=== PATIENT | male | born 1975 | race Hispanic/Latino ===

== ENCOUNTER 2017-02-23 09:51 | Observation (INO) | payer MEDICAID ==
--- NOTE | 2017-02-23 10:04 | ED PDOC ---
Arrival/HPI - General Historian: Patient, Spouse - Critical Care Critical Care Minutes: 30 minutes - History of Present Illness Time/Duration: Prior to Arrival Symptom Onset: Sudden Symptom Course: Unchanged - General Chief Complaint: Shortness Of Breath Time Seen by Provider: 02/23/17 09:52 - History of Present Illness Narrative History of Present Illness (Text): 02/23/17 10:00 41 yo M w h/o asthma and active tobacco abuse presents to ER with acute SOB onset upon waking up this morning, states he woke up to his laughing. States he feels as if he is having an asthma exacerbation, which he has had in the past, but this is more severe. Admits to chest tightness with breathing. Denies abd pain, n/v/d/c, fevers, chills, recent illness or travel, recent antibiotic use. (Renee Bishop) Past Medical History - Provider Review Nursing Documentation Reviewed: Yes - Travel History Have you recently traveled outside [place] w/in the past 3 mons?: No - Infectious Disease Hx of Infectious Diseases: None - Pulmonary Hx Asthma: Yes - Renal Other/Comment: One kidney - Psychiatric Hx Substance Use: No Family/Social History - Physician Review Nursing Documentation Reviewed: Yes Family/Social History: Hypertension Smoking Status: Heavy Smoker > 10 Cigarettes Daily Hx Alcohol Use: Yes Frequency of alcohol use: Socially Hx Substance Use: No Allergies/Home Meds Allergies/Adverse Reactions: Allergies No Known Allergies Allergy (Verified 02/23/17 09:53) Home Medications: Home Meds Medication Instructions Recorded Confirmed No Known Home Med 02/23/17 02/23/17 Review of Systems - Physician Review All systems were reviewed & negative as marked: Yes - Review of Systems Constitutional: Normal. absent: Fatigue, Fevers Eyes: absent: Vision Changes ENT: Normal Respiratory: SOB. absent: Cough, Sputum, Wheezing Cardiovascular: Chest Pain (tightness when breathing). absent: Palpitations, Edema, Calf Pain, Orthopnea, Syncope Gastrointestinal: Normal. absent: Abdominal Pain, Constipation, Diarrhea, Nausea, Vomiting Genitourinary Male: Normal. absent: Dysuria, Frequency Musculoskeletal: Normal. absent: Neck Pain Skin: Normal. absent: Rash, Skin Lesions Neurological: Normal. absent: Headache, Dizziness, Focal Weakness Endocrine: Normal. absent: Diaphoresis Hemo/Lymphatic: Normal. absent: Easy Bleeding, Easy Bruising Psychiatric: Anxiety Physical Exam Vital Signs Reviewed: Yes Temperature: Afebrile Blood Pressure: Normal Pulse: Tachycardic Respiratory Rate: Tachypneic Appearance: Positive for: Non-Toxic, Uncomfortable Pain Distress: None Mental Status: Positive for: Alert and Oriented X 3 - Systems Exam Head: Present: Atraumatic, Normocephalic Pupils: Present: PERRL Extroacular Muscles: Present: EOMI Conjunctiva: Present: Normal. No: Icteric Mouth: Present: Moist Mucous Membranes Neck: Present: Normal Range of Motion. No: Meningeal Signs, JVD Respiratory/Chest: Present: Clear to Auscultation, Good Air Exchange, Decreased Breath Sounds (mildly diffuse). No: Wheezes Cardiovascular: Present: Normal S1, S2, Tachycardic Abdomen: Present: Normal Bowel Sounds. No: Tenderness, Distention, Peritoneal Signs, Rebound, Guarding Upper Extremity: Present: Normal Inspection, Normal ROM, NORMAL PULSES, Capillary Refill < 2s. No: Cyanosis, Edema Lower Extremity: Present: Normal Inspection, NORMAL PULSES, Capillary Refill < 2 s. No: Edema, CALF TENDERNESS Neurological: Present: GCS=15, CN II-XII Intact, Speech Normal Skin: Present: Warm, Dry, Normal Color. No: Rashes Psychiatric: Present: Alert, Oriented x 3, Anxious, Agitated Medical Decision Making - Lab Interpretations I have reviewed the lab results: Yes ED Course and Treatment: 02/23/17 10:10 41 yo M w h/o asthma and active tobacco abuse presents with acute shortness of breath and tachypnea. PERC score =1 Plan: labs CXR Duonebs [id number] x 3 Solumedrol 125mg IV x1 Ativan 1mg IV Reassess, dispo 02/23/17 10:48 Patient and significantly anxious, patient requests Ativan. Will give another 0.5mg IV ativan. 02/23/17 10:[address] Conde, case discussed at length. Dr. Conde accepts admission to telemetry for acute dyspnea. Labs and CXR results discussed with patient and . In agreement with plan for admission and further workup given patient's persistent dyspnea. Vital signs currently stable, spo2 100%, currently receiving Xopenex. 02/23/17 11:01 Dr. Estevez at bedside to evaluate patient, per Dr Conde request. Requests UDS and states will f/u CTA chest ordered by hospitalist. 02/23/17 11:25 Dr. Conde and resident at bedside in ER to evaluate patient. (Renee Bishop) 02/23/17 12:42 Patient seen and examined with resident Came up with treatment and disposition plan with resident 41-year-old male with sudden onset of shortness of breath. Patient tachypnea, examination, protecting his airway, good oxygen saturation, felt better with nebulizer treatments. Patient has been admitted for further workup by the hospital service. (Lorenzo Roman) - Lab Interpretations Lab Results: 02/23/17 10:15 02/23/17 10:15 Lab Results 02/23/17 10:15: PT 11.5, INR 1.06, APTT 27.8, D-Dimer, Quantitative 0.19 02/23/17 10:15: Sodium 138, Chloride 99, Potassium 3.5 L, Carbon Dioxide 22, Anion Gap 21 H, BUN 16, Creatinine 1.0, Est GFR ( Amer) > 60, Est GFR ( Non-Af Amer) > 60, Random Glucose 116 H, Calcium 9.6, Magnesium 1.9, Total Bilirubin 1.1, AST 41, ALT 44, Alkaline Phosphatase 119, Troponin I < 0.01, Total Protein 8.8 H, Albumin 5.0 H, Globulin 3.8, Albumin/Globulin Ratio 1.3 02/23/17 10:15: WBC 13.1 H, RBC 4.94, Hgb 15.4, Hct 42.9, MCV 86.8, MCH 31.2, MCHC 35.9, RDW 12.5, Plt Count 317, MPV 9.3, Gran % 74.5 H, Lymph % (Auto) 19.2 L, Brantley % (Auto) 5.3, Eos % (Auto) 0.8 L, Baso % (Auto) 0.2, Gran # 9.76 H, Lymph # 2.5, Brantley # 0.7 H, Eos # 0.1, Baso # 0.03 02/23/17 10:06: pO2 74 H, VBG pH 7.45 H, VBG pCO2 34.0 L, VBG HCO3 23.6, VBG Total CO2 24.6, VBG O2 Sat (Calc) 97.9 H, VBG Base Excess 0.1, VBG Potassium 3.8 , Sodium 138.0, Chloride 106.0, Glucose 127 H, Lactate 3.2 H, FiO2 21.0, Venous Blood Potassium 3.8 - RAD Interpretation Radiology Orders: 02/23/17 09:54 CXR [CHEST PORTABLE] [RAD] Stat 02/23/17 10:35 CHEST PORTABLE [RAD] Stat - Medication Orders Current Medication Orders: Aspirin (Ecotrin) 81 mg PO DAILY [facility] Last Admin: 02/23/17 12:37 Dose: 81 mg Atorvastatin Calcium (Lipitor) 10 mg PO DIN [facility] Levofloxacin/Dextrose (Levaquin 500mg) 500 mg in 100 mls @ 100 mls/hr IVPB DAILY [facility] Last Admin: 02/23/17 12:36 Dose: 100 mls/hr Ipratropium [place] (Atrovent) 0.5 mg IH [id number] [facility] Last Admin: 02/23/17 12:37 Dose: 0.5 mg Levalbuterol HCl (Xopenex) 1.25 mg IH [id number] [facility] Montelukast Sodium (Singulair) 10 mg PO DAILY [facility] Pantoprazole Sodium (Protonix Ec Tab) 40 mg PO 0630 [facility] Discontinued Medications Albuterol/Ipratropium (Duoneb 3 Mg/0.5 Mg (3 Ml) Ud) 3 ml IH Q15M [facility] Stop: 02/23/17 10:31 Last Admin: 02/23/17 10:36 Dose: 3 ml Sodium Chloride (Sodium Chloride 0.9%) 1,000 mls @ 999 mls/hr IV .Q1H1M STA Stop: 02/23/17 12:33 Last Admin: 02/23/17 12:36 Dose: 999 mls/hr Iodixanol (Visipaque 320 Mg/Ml 100 Ml) Confirm Administered Dose 100 ml IV .STK- MED ONE Stop: 02/23/17 11:47 Levalbuterol HCl (Xopenex) 0.63 mg IH ONCE STA Stop: 02/23/17 10:33 Last Admin: 02/23/17 10:35 Dose: 0.63 mg Levalbuterol HCl (Xopenex) Confirm Administered Dose 0.63 mg .ROUTE .STK-MED ONE Stop: 02/23/17 10:34 Last Admin: 02/23/17 10:42 Dose: Lorazepam (Ativan) 1 mg IVP ONCE ONE PRN Reason: Protocol Stop: 02/23/17 10:16 Last Admin: 02/23/17 10:22 Dose: 1 mg Lorazepam (Ativan) 0.5 mg IVP ONCE ONE PRN Reason: Protocol Stop: 02/23/17 10:42 Last Admin: 02/23/17 10:59 Dose: 0.5 mg Methylprednisolone (Solu-Medrol) 125 mg IVP STAT STA Stop: 02/23/17 09:54 Last Admin: 02/23/17 10:16 Dose: 125 mg Methylprednisolone (Solu-Medrol) 40 mg IVP BID STA Stop: 02/23/17 11:38 Last Admin: 02/23/17 11:43 Dose: Potassium Chloride (K-Dur 20 Meq Er Tab) 20 meq PO STAT STA Stop: 02/23/17 10:48 Last Admin: 02/23/17 11:10 Dose: 20 meq Disposition/Present on Arrival - Present on Arrival Any Indicators Present on Arrival: No History of DVT/PE: No History of Uncontrolled Diabetes: No Urinary Catheter: No History of Decub. Ulcer: No History Surgical Site Infection Following: None - Disposition Have Diagnosis and Disposition been Completed?: Yes Disposition Time: 10:50 Patient Plan: Admission - Disposition Diagnosis: Acute dyspnea Disposition: HOSPITALIZED Patient Problems: Current Active Problems Problem Status Onset Acute dyspnea Acute Condition: FAIR
[2017-02-23 10:16] LABS: ADD MANUAL DIFF? NO
[2017-02-23 10:20] LABS: BASO # 0.03 K/mm3 (0.0-2.0); BASO % 0.2 % (0.0-3.0); EOS # 0.1 (0.0-0.7); EOS % 0.8 % (1.5-5.0); GRAN # 9.76 (1.4-6.5); GRAN % 74.5 % (50.0-68.0); HEMATOCRIT 42.9 % (42.0-52.0); LYMPH # 2.5 (1.2-3.4); LYMPH % 19.2 % (22.0-35.0); MEAN CELL VOLUME 86.8 fL (80.0-105.0); MEAN CORPUSCULAR HEMOGLOBIN 31.2 pg (25.0-35.0); MEAN CORPUSCULAR HGB CONC 35.9 g/dl (31.0-37.0); MEAN PLATELET VOLUME 9.3 fl (7.0-11.0); MONO # 0.7 (0.1-0.6); MONO % 5.3 % (1.0-6.0); PLATELET COUNT 317 10^3/uL (120.0-450.0); RED CELL DISTRIBUTION WIDTH 12.5 % (11.5-14.5); WHITE BLOOD COUNT 13.1 10^3/ul (4.5-11.0)
[2017-02-23] MEDS: Albuterol-Ipratrop 3 mg / 0.5 (3 ml) UD IH SCH ×2 (10:21→10:36)
[2017-02-23 10:25] LABS: VENOUS BLOOD GAS BASE EXCESS 0.1 mmol/L (0.0-2.0); VENOUS BLOOD PH 7.45 (7.32-7.43)
[2017-02-23 10:29] LABS: ALB/GLOB RATIO 1.3 (1.1-1.8); ALKALINE PHOSPHATASE 119 U/L (38-133); ALT/SGPT 44 U/L (7-56); AST/SGOT 41 U/L (15-59); BILIRUBIN,TOTAL 1.1 mg/dL (0.2-1.3); BLOOD UREA NITROGEN 16 mg/dL (7-21); CALCIUM 9.6 mg/dL (8.4-10.5); CARBON DIOXIDE 22 mmol/L (21-33); CHLORIDE 99 mmol/L (98-107); GFR AFRICAN-AMERICAN > 60; GLUCOSE,RANDOM 116 mg/dL (70-110); MAGNESIUM 1.9 mg/dL (1.7-2.2); POTASSIUM 3.5 mmol/L (3.6-5.0); SODIUM 138 mmol/L (132-148); TOTAL PROTEIN 8.8 g/dL (5.8-8.3)
[2017-02-23 10:31] LABS: INR 1.06 (0.93-1.08); PARTIAL THROMBOPLASTIN TIME 27.8 Seconds (23.7-30.8)
[2017-02-23] MEDS ORDERED: Levalbuterol 0.63 MG/3 ML Inhal Soln UD IH STA (10:32)
[2017-02-23 10:33] LABS: D DIMER 0.19 mg/L FEU (0-0.50)
[2017-02-23] MEDS ORDERED: Levalbuterol 0.63 MG/3 ML Inhal Soln UD ONE (10:33)
[2017-02-23 10:40] LABS: TROPONIN I < 0.01 ng/mL
[2017-02-23] MEDS ORDERED: Potassium Chloride 20 mEq ER Tab PO STA (10:47)
--- NOTE | 2017-02-23 10:55 | RAD ---
HISTORY: SOB COMPARISON: No prior. FINDINGS: LUNGS: No active pulmonary disease. PLEURA: No significant pleural effusion identified, no pneumothorax apparent. CARDIOVASCULAR: Normal. OSSEOUS STRUCTURES: No significant abnormalities. VISUALIZED UPPER ABDOMEN: Normal. OTHER FINDINGS: None. IMPRESSION: No active disease.
--- NOTE | 2017-02-23 10:57 | RAD ---
HISTORY: SOB COMPARISON: Earlier same day FINDINGS: LUNGS: No active pulmonary disease. PLEURA: Inspiratory and expiratory films were obtained rule out pneumothorax. The study is unremarkable CARDIOVASCULAR: Normal. OSSEOUS STRUCTURES: No significant abnormalities. VISUALIZED UPPER ABDOMEN: Normal. OTHER FINDINGS: None. IMPRESSION: No evidence of pneumothorax
[2017-02-23] MEDS ORDERED: Sodium Chloride 0.9% 1,000 ML IV STA ×2 (11:33→14:25)
[2017-02-23] MEDS ORDERED: MethylPREDNISolone 40 mg Vial IVP STA (11:37)
[2017-02-23] MEDS ORDERED: levoFLOXacin 500 mg in D5W 500 MG/100 ML BAG IVPB SCH (11:45)
[2017-02-23] MEDS ORDERED: Iodixanol 320 MG/ML 100 ML BOTTLE IV ONE (11:46)
[2017-02-23] MEDS ORDERED: Levalbuterol 1.25 MG/3 ML Inhal Soln UD IH SCH (12:00)
[2017-02-23] MEDS ORDERED: Ipratropium 0.02% Inhal Soln (0.5 mg/2.5 ml) UD IH SCH (12:00)
--- NOTE | 2017-02-23 12:34 | CT ---
PROCEDURE: CT Chest with contrast (Pulmonary Angiogram) HISTORY: rule out Pulmonary embolism COMPARISON: None available. TECHNIQUE: Axial computed tomography images were obtained of the chest in the pulmonary arterial phase of enhancement. Coronal and sagittal reformatted images were created and reviewed. Intravenous contrast dose: 100 cc of Visipaque Radiation dose: Total exam DLP = 455 mGy-cm. This CT exam was performed using one or more of the following dose reduction techniques: Automated exposure control, adjustment of the mA and/or kV according to patient size, and/or use of iterative reconstruction technique. FINDINGS: PULMONARY ARTERIES: Unremarkable. No pulmonary embolism. AORTA: No acute findings. No thoracic aortic aneurysm. LUNGS: Unremarkable. No nodule, mass or pulmonary consolidation. PLEURAL SPACES: Unremarkable. No effusion or pneuomothorax. HEART: Unremarkable. No cardiomegaly. No significant pericardial effusion. LYMPH NODES: No lymphadenopathy. BONES, CHEST WALL: Unremarkable. No fracture or destructive lesion OTHER FINDINGS: Unremarkable. IMPRESSION: Unremarkable CT pulmonary angiogram. No pulmonary embolus.
--- NOTE | 2017-02-23 12:48 | CP.PCM.HP ---
<Raissa Hatch - Last Filed: 02/23/17 13:16> History of Present Illness - History of Present Illness History of Present Illness: 41 yo M w/PMHx of COPD and former heavy smoker, presents with sudden onset L chest pain and SOB from 5 hours prior while lying in bed. Said pain is described as tightness and radiates to lower left back. Pt denies vomiting, diarrhea, leg swelling, fever, recent illness. PMHx: COPD, non-functional R kidney (renal vein thrombosis) Sx: denies Medications: atorvastatin 10mg qd, monteluekast 10 qd, centrizine 10 qd, pantoprazole 40. All: NKDA Social; former smoker 1ppd. 3 servings wine per week, and denies illicit drugs Family: dm, stents in parent Present on Admission - Present on Admission Any Indicators Present on Admission: No Review of Systems - Review of Systems All systems: reviewed and no additional remarkable complaints except - Constitutional Constitutional: absent: Chills, Fever - Cardiovascular Cardiovascular: Chest Pain, Dyspnea - Respiratory Respiratory: Dyspnea. absent: Hemoptysis - Gastrointestinal Gastrointestinal: absent: Abdominal Pain, Diarrhea Past Patient History - Infectious Disease Hx of Infectious Diseases: None - Past Social History Smoking Status: Heavy Smoker > 10 Cigarettes Daily - PULMONARY Hx Asthma: Yes - RENAL Other/Comment: One kidney - PSYCHIATRIC Hx Substance Use: No - SURGICAL HISTORY Hx Surgeries: No Meds Allergies/Adverse Reactions: Allergies Allergy/AdvReac Type Severity Reaction Status Date / Time No Known Allergies Allergy Verified 02/23/17 09:53 Physical Exam - Constitutional Appears: Non-toxic, In Acute Distress - Head Exam Head Exam: ATRAUMATIC, NORMOCEPHALIC - Eye Exam Eye Exam: EOMI, Normal appearance - Respiratory Exam Respiratory Exam: Clear to Auscultation Bilateral, NORMAL BREATHING PATTERN - Cardiovascular Exam Cardiovascular Exam: Tachycardia, +S1, +S2 - GI/Abdominal Exam GI & Abdominal Exam: Soft. absent: Tenderness - Exam External exam: absent: Ecchymosis, Erythema - Extremities Exam Extremities exam: Positive for: pedal pulses present. Negative for: tenderness - Neurological Exam Neurological exam: Alert, Oriented x3 - Skin Skin Exam: Intact, Normal Color Results - Vital Signs Recent Vital Signs: Last Vital Signs Temp 97.7 F 02/23/17 09:51 Pulse 115 H 02/23/17 09:51 Resp 19 02/23/17 09:51 BP Pulse Ox 100 02/23/17 09:58 - Labs Result Diagrams: 02/23/17 10:15 02/23/17 10:15 Labs: Laboratory Results - last 24 hr 02/23/17 11:30 Urine Opiates Screen Negative Urine Methadone Screen Negative Ur Barbiturates Screen Negative Ur Phencyclidine Scrn Negative Ur Amphetamines Screen Negative U Benzodiazepines Scrn Negative U Oth Cocaine Metabols Negative U Cannabinoids Screen Negative Assessment & Plan - Assessment and Plan (Free Text) Plan: 41 yo M w/PMHx of COPD, initially presented with sudden onset dyspnea and L chest tightness. CXR without active process, wbc 15, and transferred to telemetry under obs for acute dyspnea. acute dyspnea: CT angiogram negative for PE, D-Dimer low xopenex q6 duonebs ipratropium q6 singulair 10mg PO QD levaquin 500 mg Qd solumedrol 40 mg IVP BID Labs ordered: lactic acid, troponins x2, Bcx, Ucx, procalcitonin chest pain: initial troponin negative Cardiology consult requested for r/o Pulmonary htn, help appreciated ECHO ordered PPx measures: atorvastatin 10mg qd heparin 5000 u sc q8 protonix 40mg <Elton CHIANG,Jacquelin - Last Filed: 02/23/17 15:54> Results - Vital Signs Recent Vital Signs: Last Vital Signs Temp 98.6 F 02/23/17 15:13 Pulse 113 H 02/23/17 15:13 Resp 18 02/23/17 15:13 BP 153/97 H 02/23/17 15:13 Pulse Ox 99 02/23/17 15:13 - Labs Result Diagrams: 02/23/17 10:15 02/23/17 10:15 Labs: Laboratory Results - last 24 hr 02/23/17 02/23/17 11:30 13:40 pO2 114 H VBG pH 7.37 VBG pCO2 34.0 L VBG HCO3 19.7 L VBG Total CO2 20.7 L VBG O2 Sat (Calc) 99.7 H VBG Base Excess -4.8 L VBG Potassium 3.4 L Sodium 137.0 Chloride 102.0 Glucose 147 H Lactate 5.4 H* FiO2 21.0 Venous Blood Potassium 3.4 L Urine Opiates Screen Negative Urine Methadone Screen Negative Ur Barbiturates Screen Negative Ur Phencyclidine Scrn Negative Ur Amphetamines Screen Negative U Benzodiazepines Scrn Negative U Oth Cocaine Metabols Negative U Cannabinoids Screen Negative Attending/Attestation - Attestation I have personally seen and examined this patient.: Yes I have fully participated in the care of the patient.: Yes I have reviewed all pertinent clinical information: Yes Notes (Text): Patient was seen and examined with medical receptionist medical assistant .Agreed with resident assessment and plan. 41 yo M w/PMHx of COPD, chronic smoking ,HTN ,alcohol abuse was admitted with sudden onset dyspnea and L chest tightness. Patient is tachycardiac, has Leukocytosis, CT angio chest is negative for Pulmonary embolism.Patient lactic acid on VBG is high, etiology is not clear, we will do Nielson cultures, will hydrate patient and repeat lactic acid.Patient is on Levaquin at this time, if repeat lactic acid is still high, will start on broad spectrum antibiotic . Patient is also having mild wheezing , will start patient on Neb/IV methylprednsolon. We will also check Urine toxicology for drug screen. Management plan was discussed in detail with patient Education was provided.
[2017-02-23 13:56] LABS: VENOUS BLOOD GAS BASE EXCESS -4.8 mmol/L (0.0-2.0); VENOUS BLOOD PH 7.37 (7.32-7.43)
--- NOTE | 2017-02-23 14:23 | CON ---
DATE: 02/23/2017 REASON FOR CONSULTATION: Left-sided chest pain and shortness of breath. HISTORY OF PRESENT ILLNESS: The patient is a 41-year-old male who has a history of bronchial asthma and is a smoker who presented because of sharp left-sided lateral chest pain associated with shortnes s of breath. The patient is experiencing a cough. The patient has history of bronchial asthma, but is noncompliant with his medications and he continues to smoke. The patient is unaware of any prior cardiac history. The patient denies any associated diaphoresis. The patient is unaware of any fever or chills. SOCIAL HISTORY: The patient is a smoker. 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 MEDICATIONS: Ativan 0.5 mg q. 6 hours p.r.n., Atrovent inhaler q. 6 hours p.r.n., aspirin 81 mg once a day, subcutaneous heparin 5000 units q. 8 hours, Lipitor 10 mg once a day, Levaquin 500 mg intrave nously daily, Protonix 40 mg p.o. once a day, Solu-Medrol 40 mg intravenous twice a day, Xopenex inha ler q. 6 hours p.r.n. REVIEW OF SYSTEMS: No fever or chills. No hematemesis or melena. No dizziness or syncope. PHYSICAL EXAMINATION: GENERAL: The patient is a young middle-aged male who does not appear to be in any distress. VITAL SIGNS: Blood pressure 157/79, heart rate 114, temperature 97.7, respirations 20. HEENT: Normocephalic. NECK: No JVD. CHEST: Bilateral rhonchi. HEART: S1, S2 regular. ABDOMEN: Soft. EXTREMITIES: No edema or calf tenderness. LABORATORY DATA: CBC of 16.1, hemoglobin 15.4, hematocrit 42.9, platelet count 117,000. SMA-7: Sod ium 138, potassium 3.5, chloride 99, CO2 22, glucose 116, BUN 16, creatinine 1.0. One set of troponi n is negative. Urine drug screen is negative. PT, PTT and D-dimer are within normal limits. EKG re vealed sinus tachycardia at rate of 109 beats per minute. Chest CT angio was unremarkable. CT pulmo nary angiogram, no pulmonary embolus. ASSESSMENT: 1. Persistent sharp left-sided chest pain, unlikely acute coronary syndrome. 2. Rule out costochondritis. 3. History of bronchial asthma. 4. Borderline hypokalemia. RECOMMENDATIONS: Continue current aspirin 81 mg once a day, subcutaneous heparin 5000 units q. 8 annabelle rs, Lipitor 10 mg once a day, Solu-Medrol 40 mg intravenously twice a day besides inhaler therapy. O btain an echocardiogram. Monitor the patient's local chest wall area for any future herpetic eruptio n, although it is a very less likely possibility. Georgi Estevez MD cc: [id number] TT: 02/23/2017 14:22:13 Confirmation # [id number] Dictation # [id number] addison
--- NOTE | 2017-02-23 15:06 | PCM.SEPTIC ---
Addendum entered and electronically signed by Raissa Hatch DO 02/23/17 15:10: WBC 13.1 Original Note: <Raissa Hatch - Last Filed: 02/23/17 15:08> Sepsis Progress Note - Reassessment Type Date of Evaluation: 02/23/17 Time of Evaluation: 12:10 Reassessment Type: Non-invasive reassessment - Non Invasive Reassessment Were the most recent vital sign reviewed: Yes Vital Sign (Latest): Temp Pulse Resp BP Pulse Ox 97.7 F 114 H 20 157/79 H 97 02/23/17 09:51 02/23/17 13:09 02/23/17 13:09 02/23/17 13:09 02/23/17 13:09 Cardiovascular: Yes: Regular Rate, Rhythm, Tachycardia Respiratory: Yes: Normal Breath Sounds. No: Wheezing Capillary Refill: Normal (Less than 2 sec) Pulses: Normal Radial, Normal Dorsalis Pedis, Normal Posterior Tibialis Skin: Normal Color, Warm Assessment/Plan - Assessment and Plan (Free Text) Assessment: 41 yo M w/pmhx of COPD presents with sudden onset dyspnea and chest pain. Tachycardia of 115, and RR of 19. Lactic acid 3.2: Plan: Repeat lactic acid ordered and 1L bolus NS administered. Vitals are being monitored. - Date & Time Date: 02/23/17 Time: 12:10 <Jacquelin Conde MD - Last Filed: 02/23/17 15:41> Sepsis Progress Note - Non Invasive Reassessment Vital Sign (Latest): Temp Pulse Resp BP Pulse Ox 98.6 F 113 H 18 153/97 H 99 02/23/17 15:13 02/23/17 15:13 02/23/17 15:13 02/23/17 15:13 02/23/17 15:13 Attending/Attestation - Attestation I have personally seen and examined this patient.: Yes I have fully participated in the care of the patient.: Yes I have reviewed all pertinent clinical information, including history, physical exam and plan: Yes Notes (Text): 02/23/17 15:39 Patient lactic acid on VBG is 5.4, he has mild Leukocytosis, no evidence of Pneumonia, UA is pending, abdominal examination is benign.The etiology of lactic acid is not clear, there is no evidence of limb ischemia.We will hydrate patient, start on broad spectrum antibiotics, will check repeat lactic acid in 3 hour and will also check Procalcitonin level.We will also get abdominal USG and ID consult.
[2017-02-23] MEDS ORDERED: Sodium Chloride 0.9% 100 ML IV SCH (17:30)
[2017-02-23] MEDS: Piperacillin/Tazobact 3.375 gm 100 ML IVPB SCH ×2 (17:49→23:46)
[2017-02-23] MEDS: Sodium Chloride 0.9% 1,000 ML IV SCH (17:50)
[2017-02-23 18:28] VITALS: BMI 28.1
[2017-02-23 18:59] LABS: PH,URINE 6.5 (4.7-8.0); URINE BILIRUBIN NEGATIVE (NEGATIVE); URINE BLOOD TRACE-LYSED (NEGATIVE); URINE GLUCOSE (UA) 500 mg/dL (NEGATIVE); URINE KETONE NEGATIVE (NEGATIVE); URINE LEUKOCYTE ESTERASE NEGATIVE Leu/uL (NEGATIVE); URINE PROTEIN TRACE mg/dL (<30 mg/dL); URINE UROBILINOGEN 0.2 E.U./dL (<1 E.U./dL)
[2017-02-23 19:01] LABS: URINE APPEARANCE CLEAR (CLEAR); URINE COLOR YELLOW (YELLOW)
[2017-02-23 19:13] LABS: URINE BACTERIA TRACE (NEG); URINE EPITHELIAL CELLS 0 - 2 /hpf (0-5); URINE RBC 0 - 2 /hpf (0-2); URINE WBC 0 - 2 /hpf (0-6)
[2017-02-23] MEDS ORDERED: Pantoprazole 40 mg EC Tab PO STA (19:21)
--- NOTE | 2017-02-23 19:42 | CARD ---
APPROVED REPORT EKG Measurement Heart [id number] CO [id number] <Conclusion> Sinus tachycardia Nonspecific ST abnormality Abnormal ECG
[2017-02-23] MEDS: Levalbuterol 1.25 MG/3 ML Inhal Soln UD IH PRN (20:06)
[2017-02-23] MEDS: Vancomycin 1gm in NS 250ml 1 GM/250 ML BAG IVPB SCH (21:50)
[2017-02-23] MEDS ORDERED: Vancomycin 1 g Inj IVPB SCH (22:00)
[2017-02-23] MEDS: Levalbuterol 1.25 MG/3 ML Inhal Soln UD IH SCH (23:44)
[2017-02-23] MEDS: Ipratropium 0.02% Inhal Soln (0.5 mg/2.5 ml) UD IH SCH (23:44)
[2017-02-24] MEDS: Ipratropium 0.02% Inhal Soln (0.5 mg/2.5 ml) UD IH SCH ×6 (03:20→19:59)
[2017-02-24] MEDS: Levalbuterol 1.25 MG/3 ML Inhal Soln UD IH SCH ×5 (03:20→19:59)
[2017-02-24] MEDS: Levalbuterol 1.25 MG/3 ML Inhal Soln UD IH PRN (04:16)
[2017-02-24] MEDS: Pantoprazole 40 mg EC Tab PO SCH (05:56)
[2017-02-24] MEDS: Sodium Chloride 0.9% 1,000 ML IV SCH ×2 (06:06→13:10)
[2017-02-24 06:25] LABS: HEMATOCRIT 36.3 % (42.0-52.0); MEAN CORPUSCULAR HEMOGLOBIN 30.1 pg (25.0-35.0); MEAN CORPUSCULAR HGB CONC 33.9 g/dl (31.0-37.0); MEAN PLATELET VOLUME 9.7 fl (7.0-11.0); PLATELET COUNT 254 10^3/uL (120.0-450.0); RED CELL DISTRIBUTION WIDTH 12.8 % (11.5-14.5); WHITE BLOOD COUNT 9.6 10^3/ul (4.5-11.0)
[2017-02-24 06:33] LABS: ADD MANUAL DIFF? YES
[2017-02-24 06:41] LABS: ALB/GLOB RATIO 1.2 (1.1-1.8); ALKALINE PHOSPHATASE 76 U/L (38-133); ALT/SGPT 43 U/L (7-56); AST/SGOT 35 U/L (15-59); BILIRUBIN,TOTAL 0.7 mg/dL (0.2-1.3); BLOOD UREA NITROGEN 11 mg/dL (7-21); CALCIUM 8.6 mg/dL (8.4-10.5); CARBON DIOXIDE 24 mmol/L (21-33); CHLORIDE 104 mmol/L (98-107); GFR AFRICAN-AMERICAN > 60; GLUCOSE,RANDOM 146 mg/dL (70-110); POTASSIUM 4.2 mmol/L (3.6-5.0); SODIUM 137 mmol/L (132-148); TOTAL PROTEIN 6.9 g/dL (5.8-8.3)
--- NOTE | 2017-02-24 06:48 | PCM.SEPTIC ---
Sepsis Progress Note - Reassessment Type Date of Evaluation: 02/23/17 Time of Evaluation: 18:30 Reassessment Type: Non-invasive reassessment - Non Invasive Reassessment Were the most recent vital sign reviewed: Yes Vital Sign (Latest): Temp Pulse Resp BP Pulse Ox 97.6 F 76 19 144/88 96 02/24/17 06:00 02/24/17 06:00 02/24/17 06:00 02/24/17 06:00 02/24/17 06:00 Cardiovascular: Yes: Regular Rate, Rhythm Respiratory: Yes: Wheezing (Mild B/L). No: Accessory Muscle Use, Crackles, Rales, Rhonchi, Stridor, Respiratory Distress Capillary Refill: Normal (Less than 2 sec) Skin: Normal Color, Warm, Dry - Invasive Reassessment (complete 2 of 4) Was a Central Venous Pressure Measurement obtained within 6 Hours after the presentation of septic shock: No Was a central venous oxygen measurement obtained within 6 hours after the presentation of septic shock: No Was a bedside cardiovascular ultrasound performed within 6 hours after the presentation of septic shock: No Was a passive leg raise performed or was a fluid challenge performed within 6 hrs of the initial fluid bolus: Yes Passive Leg Raise Result: Not Applicable Fluid Challenge performed: Yes
[2017-02-24 07:06] LABS: BAND 7 % (0-2); NEUTROPHIL 81 % (50.0-70.0); PLATELET ESTIMATE NORMAL (NORMAL)
--- NOTE | 2017-02-24 09:11 | US ---
HISTORY: sepsis work up COMPARISON: None. TECHNIQUE: Sonographic evaluation of the abdomen. FINDINGS: LIVER: Measures 20 cm. Consistent with hepatomegaly Normal echogenicity of the liver parenchyma. No mass. No intrahepatic bile duct dilatation. GALLBLADDER: Unremarkable. No gallstones. COMMON BILE DUCT: Measures 5 mm. No stones. No dilatation. PANCREAS: Not clearly visualized due to obscuring bowel gas. RIGHT KIDNEY: Nonvisualized consistent with agenesis - this history is also provided by the patient LEFT KIDNEY: Measures 12.5 x 7.5 x 8.6cm. Normal echogenicity. No calculus, mass, or hydronephrosis. SPLEEN: Normal in size and contour. No mass. AORTA: No aneurysmal dilatation. IVC: Unremarkable. OTHER FINDINGS: None. 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 Hepatomegaly. Nonvisualized pancreas due to obscuring bowel gas
[2017-02-24] MEDS: MethylPREDNISolone 40 mg Vial IVP SCH ×2 (09:25→17:33)
[2017-02-24] MEDS: Vancomycin 1gm in NS 250ml 1 GM/250 ML BAG IVPB SCH (09:26)
--- NOTE | 2017-02-24 14:28 | CP.PCM.CON ---
History of Present Illness - History of Present Illness History of Present Illness: 41 year old male with PMH of COPD, history of heavy smoking, history of renal vein thrombosis came in to the ED complaining of shortness of breath, wheezing and left sided chest pain a few hours prior to presentation in the ED. He denies sputum production, no fever or chills, no sore throat, no abdominal pain , no radiation of chest pain to the arm or neck, no nausea or vomiting, no dysuria, no diarrhea. CT chest was done in the ED which did not show pulmonary embolism or pneumonia. In the ED, blood work was done which revealed high lactic acid. Infectious Diseases consult is requested to further evaluate and manage. Review of Systems - Review of Systems All systems: reviewed and no additional remarkable complaints except (as per HPI ) Past Patient History - Infectious Disease Hx of Infectious Diseases: None - Past Social History Smoking Status: Heavy Smoker > 10 Cigarettes Daily - PULMONARY Hx Asthma: Yes - RENAL Other/Comment: One kidney - PSYCHIATRIC Hx Substance Use: No - SURGICAL HISTORY Hx Surgeries: No Meds Allergies/Adverse Reactions: Allergies Allergy/AdvReac Type Severity Reaction Status Date / Time No Known Allergies Allergy Verified 02/23/17 09:53 - Medications Medications: Current Medications Aspirin (Ecotrin) 81 mg PO DAILY [facility] Last Admin: 02/23/17 12:37 Dose: 81 mg Atorvastatin Calcium (Lipitor) 10 mg PO DIN [facility] Heparin Sodium (Porcine) (Heparin) 5,000 units SC Q8 ROBERT PRN Reason: Protocol Last Admin: 02/23/17 14:50 Dose: 5,000 units Piperacillin Sod/Tazobactam Sod (Zosyn 3.375 In Ns 100ml) 100 mls @ 200 mls/hr IVPB Q6 ROBERT PRN Reason: Protocol Stop: 02/24/17 00:29 Vancomycin HCl (Vancomycin 1gm) 1 gm in 250 mls @ 167 mls/hr IVPB Q12 ROBRET Ipratropium [place] (Atrovent) 0.5 mg IH [id number] ROBERT Last Admin: 02/23/17 12:37 Dose: 0.5 mg Levalbuterol HCl (Xopenex) 1.25 mg IH [id number] ROBERT Last Admin: 02/23/17 12:56 Dose: 1.25 mg Lorazepam (Ativan) 0.5 mg PO Q6 PRN; Protocol PRN Reason: Anxiety Last Admin: 02/23/17 15:16 Dose: 0.5 mg Methylprednisolone (Solu-Medrol) 40 mg IVP BID ROBERT Montelukast Sodium (Singulair) 10 mg PO DAILY ROBERT Pantoprazole Sodium (Protonix Ec Tab) 40 mg PO 0630 ROBERT Physical Exam - Constitutional Appears: Non-toxic, No Acute Distress - Head Exam Head Exam: NORMAL INSPECTION - Neck Exam Neck exam: Negative for: Lymphadenopathy, Meningismus - Respiratory Exam Respiratory Exam: Decreased Breath Sounds, Wheezes (expiratory and scattered) - Cardiovascular Exam Cardiovascular Exam: +S1, +S2 - GI/Abdominal Exam GI & Abdominal Exam: Soft. absent: Tenderness Results - Vital Signs Recent Vital Signs: Last Vital Signs Temp 98.4 F 02/23/17 16:41 Pulse 100 H 02/23/17 16:41 Resp 20 02/23/17 16:41 BP 169/98 H 02/23/17 16:41 Pulse Ox 98 02/23/17 16:41 - Labs Result Diagrams: 02/24/17 05:00 02/24/17 05:00 Labs: Laboratory Results - last 24 hr 02/23/17 02/23/17 15:00 15:40 Lactic Acid 4.5 H* Troponin I < 0.01 Assessment & Plan - Assessment and Plan (Free Text) Plan: Assessment Systemic Inflammatory Response Syndrome, consider secondary to acute exacerbation of COPD; no so far no evidence of sepsis identified COPD history of heavy smoking history of renal vein thrombosis Plan Patient was started on Vancomycin and Zosyn - will change to Doxycycline; will follow up blood cx; PCT is <0.05 making bacterial sepsis unlikely - the WBC count has also normalized Follow up work up for chest pain Will monitor clinically
--- NOTE | 2017-02-24 16:10 | CARD ---
APPROVED REPORT EXAM: Two-dimensional and M-mode echocardiogram with Doppler and color Doppler. INDICATION R/O PULMONARY HTN 2D DIMENSIONS Left Atrium (2D)4.3 (1.6-4.0cm)IVSd1.0 (0.7-1.1cm) LVDd4.5 (3.9-5.9cm)PWd1.1 (0.7-1.1cm) LVDs3.1 (2.5-4.0cm)FS (%) 30.6 % LVEF (%)58.3 (>50%) M-Mode DIMENSIONS Aortic Root3.70 (2.2-3.7cm)Aortic Cusp Exc.2.00 (1.5-2.0cm) Aortic Valve AoV Peak Btqxzkmo282.0cm/Claus Peak GR.7mmHg Mitral Valve MV E Fvubymnp48.6cm/sMV A Efgeluwr46.4cm/sE/A ratio1.2 TDI Lateral E' Peak V14.50cm/sMedial E' Peak V10.00cm/sE/Lateral E'6.0 E/Medial E'8.8 Pulmonary Valve PV Peak Cqjyddvm86.2cm/sPV Peak Grad.2mmHg Tricuspid Valve TR Peak Qveirbjj637xy/sRAP LUTTTKBO25saLiGH Peak Gr.28mmHg [id number] LEFT VENTRICLE The left ventricle is normal size. There is normal left ventricular wall thickness. The left ventricular function is normal. The left ventricular ejection fraction is within the normal range. There is normal LV segmental wall motion. The left ventricular diastolic function is normal. No left ventricle thrombus noted on this study. RIGHT VENTRICLE The right ventricle is normal size. There is normal right ventricular wall thickness. The right ventricular systolic function is normal. ATRIA The left atrium size is normal. The right atrium size is normal. AORTIC VALVE The aortic valve is normal in structure. No aortic regurgitation is present. MITRAL VALVE The mitral valve is normal in structure. Mitral regurgitation is trace. TRICUSPID VALVE There is trace tricuspid regurgitation. There is mild pulmonary hypertension. GREAT VESSELS The aortic root is normal in size. PERICARDIAL EFFUSION There is no pericardial effusion. <Conclusion> The left ventricle is normal size. There is normal left ventricular wall thickness. The left ventricular function is normal. The left ventricular ejection fraction is within the normal range. There is normal LV segmental wall motion. The left ventricular diastolic function is normal. There is mild pulmonary hypertension.
--- NOTE | 2017-02-24 16:37 | CP.PCM.PN ---
<Raissa Hatch - Last Filed: 02/24/17 17:22> Subjective - Date & Time of Evaluation Date of Evaluation: 02/24/17 Time of Evaluation: 07:30 - Subjective Subjective: Pt seen and evaluated at bedside. Pt denies f/c/n/v and chest and abdomnial pain. Has wet cough. Reports eating. Afebrile overnight. Objective - Vital Signs/Intake and Output Vital Signs (last 24 hours): Temp Pulse Resp BP Pulse Ox 97.8 F 91 H 20 158/94 H 98 02/24/17 12:00 02/24/17 13:58 02/24/17 12:00 02/24/17 12:00 02/24/17 09:00 Intake and Output: 02/24/17 02/24/17 06:59 18:59 Intake Total 180 180 Output Total 2 600 Balance 178 -420 - Medications Medications: Current Medications Acetaminophen (Tylenol 325mg Tab) 650 mg PO Q6H PRN PRN Reason: Pain, Mild (1-3) Last Admin: 02/23/17 20:15 Dose: 650 mg Aspirin (Ecotrin) 81 mg PO DAILY [facility] Last Admin: 02/24/17 09:27 Dose: 81 mg Atorvastatin Calcium (Lipitor) 10 mg PO DIN [facility] Last Admin: 02/23/17 17:49 Dose: 10 mg Diphenhydramine HCl (Benadryl) 50 mg PO HS PRN PRN Reason: Insomnia Last Admin: 02/23/17 21:50 Dose: 50 mg Doxycycline Hyclate (Doryx) 100 mg PO Q12 STEPAN PRN Reason: Protocol Last Admin: 02/24/17 15:36 Dose: 100 mg Heparin Sodium (Porcine) (Heparin) 5,000 units SC Q8 STEPAN PRN Reason: Protocol Last Admin: 02/24/17 13:13 Dose: Not Given Sodium Chloride (Sodium Chloride 0.9%) 1,000 mls @ 150 mls/hr IV .Q6H40M [facility] Last Admin: 02/24/17 13:10 Dose: 150 mls/hr Ipratropium [place] (Atrovent) 0.5 mg IH [id number] [facility] Last Admin: 02/24/17 15:50 Dose: 0.5 mg Levalbuterol HCl (Xopenex) 1.25 mg IH [id number] [facility] Last Admin: 02/24/17 15:51 Dose: 1.25 mg Levalbuterol HCl (Xopenex) 1.25 mg IH Q2H PRN PRN Reason: Wheezing Last Admin: 02/24/17 04:16 Dose: 1.25 mg Lisinopril (Zestril) 10 mg PO DAILY [facility] Last Admin: 02/24/17 09:26 Dose: 10 mg Loratadine (Claritin) 10 mg PO DAILY [facility] Last Admin: 02/24/17 09:26 Dose: 10 mg Lorazepam (Ativan) 0.5 mg PO Q6 PRN; Protocol PRN Reason: Anxiety Last Admin: 02/23/17 15:16 Dose: 0.5 mg Methylprednisolone (Solu-Medrol) 40 mg IVP BID [facility] Last Admin: 02/24/17 09:25 Dose: 40 mg Montelukast Sodium (Singulair) 10 mg PO DAILY [facility] Last Admin: 02/24/17 09:26 Dose: 10 mg Pantoprazole Sodium (Protonix Ec Tab) 40 mg PO 0630 [facility] Last Admin: 02/24/17 05:56 Dose: 40 mg - Labs Labs: 02/24/17 05:00 02/24/17 05:00 PT 11.5 Seconds (9.9-11.8) 02/23/17 10:15 INR 1.06 (0.93-1.08) 02/23/17 10:15 APTT 27.8 Seconds (23.7-30.8) 02/23/17 10:15 - Constitutional Appears: Non-toxic, No Acute Distress - Head Exam Head Exam: ATRAUMATIC, NORMOCEPHALIC - Eye Exam Eye Exam: EOMI, Normal appearance - Respiratory Exam Respiratory Exam: Wheezes, NORMAL BREATHING PATTERN - Cardiovascular Exam Cardiovascular Exam: +S1, +S2. absent: Bradycardia - GI/Abdominal Exam GI & Abdominal Exam: Soft. absent: Tenderness - Exam External exam: absent: Ecchymosis, Erythema - Extremities Exam Extremities Exam: Normal Capillary Refill. absent: Tenderness - Neurological Exam Neurological Exam: Alert, Awake - Psychiatric Exam Psychiatric exam: Normal Affect, Normal Mood - Skin Skin Exam: Intact, Normal Color Assessment and Plan - Assessment and Plan (Free Text) Plan: 41 yo M w/PMHx of COPD, initially presented with sudden onset dyspnea and L chest tightness. CXR without active process, wbc 15, and transferred to telemetry under obs for acute dyspnea. acute dyspnea: CT angiogram negative for PE xopenex prn and stepan ipratropium singulair doxycycline solumedrol 40 mg IVP BID Bcx negative at 24 hrs x2 Labs pending: Ucx procalcitonin low, downtrending lactic acid, most recently 2.7 chest pain: trops negative x 3 Cardiology consult requested for r/o Pulmonary htn, help appreciated ECHO: normal EF PPx measures: atorvastatin 10mg qd heparin 5000 u sc q8 protonix 40mg <Elton CHIANG,Jacquelin - Last Filed: 02/25/17 14:01> Objective - Vital Signs/Intake and Output Vital Signs (last 24 hours): Temp Pulse Resp BP Pulse Ox 97.5 F L 75 20 150/101 H 98 02/25/17 05:31 02/25/17 09:29 02/25/17 05:31 02/25/17 09:29 02/25/17 05:31 Intake and Output: 02/25/17 02/25/17 06:59 18:59 Intake Total 2100 Output Total 600 Balance 1500 - Labs Labs: 02/25/17 06:30 02/25/17 06:30 PT 11.5 Seconds (9.9-11.8) 02/23/17 10:15 INR 1.06 (0.93-1.08) 02/23/17 10:15 APTT 27.8 Seconds (23.7-30.8) 02/23/17 10:15 Attending/Attestation - Attestation I have personally seen and examined this patient.: Yes I have fully participated in the care of the patient.: Yes I have reviewed all pertinent clinical information, including history, physical exam and plan: Yes Notes (Text): 02/25/17 13:58 Patient was seen and examined with medical records tech .Agreed with resident assessment and plan. Patient is felling better, cough and dyspnea has improved.He is afebrile.Cultures are negative for any growth.Procalcitonin level is normal.Lactic acidosis is coming down.If cultures remain negative broad spectrum antibiotics can be discontinued . Issue of chronic smoking and alcohol abuse was discussed in detail with patient. Management plan was discussed in detail with patient Education was provided.
[2017-02-25 00:01] VITALS: RESP 20
[2017-02-25] MEDS: Levalbuterol 1.25 MG/3 ML Inhal Soln UD IH SCH ×3 (02:11→08:06)
[2017-02-25] MEDS: Ipratropium 0.02% Inhal Soln (0.5 mg/2.5 ml) UD IH SCH ×4 (02:11→11:18)
[2017-02-25 05:32] VITALS: TEMP 97.5; O2SAT 98
[2017-02-25] MEDS: Sodium Chloride 0.9% 1,000 ML IV SCH ×2 (06:21→06:22)
[2017-02-25] MEDS: Pantoprazole 40 mg EC Tab PO SCH (06:21)
[2017-02-25 06:53] LABS: ADD MANUAL DIFF? NO
[2017-02-25 07:09] LABS: EOS % 0.1 % (1.5-5.0); GRAN # 10.71 (1.4-6.5); GRAN % 84.1 % (50.0-68.0); HEMATOCRIT 34.2 % (42.0-52.0); LYMPH % 7.6 % (22.0-35.0); MEAN CELL VOLUME 91.2 fL (80.0-105.0); MEAN CORPUSCULAR HEMOGLOBIN 30.9 pg (25.0-35.0); MEAN CORPUSCULAR HGB CONC 33.9 g/dl (31.0-37.0); MEAN PLATELET VOLUME 9.8 fl (7.0-11.0); MONO # 1.1 (0.1-0.6); MONO % 8.2 % (1.0-6.0); PLATELET COUNT 269 10^3/uL (120.0-450.0); WHITE BLOOD COUNT 12.7 10^3/ul (4.5-11.0)
[2017-02-25 07:30] LABS: ALB/GLOB RATIO 1.4 (1.1-1.8); ALKALINE PHOSPHATASE 64 U/L (38-133); ALT/SGPT 47 U/L (7-56); AST/SGOT 32 U/L (15-59); BILIRUBIN,TOTAL 0.4 mg/dL (0.2-1.3); BLOOD UREA NITROGEN 14 mg/dL (7-21); CALCIUM 8.7 mg/dL (8.4-10.5); CARBON DIOXIDE 24 mmol/L (21-33); CHLORIDE 105 mmol/L (98-107); GFR AFRICAN-AMERICAN > 60; GLUCOSE,RANDOM 134 mg/dL (70-110); POTASSIUM 3.7 mmol/L (3.6-5.0); SODIUM 136 mmol/L (132-148); TOTAL PROTEIN 6.6 g/dL (5.8-8.3)
[2017-02-25] MEDS: MethylPREDNISolone 40 mg Vial IVP SCH (09:31)
[2017-02-25 09:35] VITALS: BP 150/101; PULSE 75
--- NOTE | 2017-02-25 11:38 | CP.PCM.DIS ---
<Raissa Hatch - Last Filed: 02/25/17 12:33> Provider - Provider Date of Admission: 02/23/17 14:48 Attending physician: Jacquelin Conde MD Primary care physician: Felix Rapp MD Consults: ID: Jean Claude, Cardiology: Herb, Time Spent in preparation of Discharge (in minutes): 35 Hospital Course - Lab Results Lab Results: Micro Results 02/23/17 18:53 Urine Urine Culture - Final No Growth (<1,000 CFU/ML) 02/23/17 15:15 Blood-Venous Blood Culture - Preliminary NO GROWTH AFTER 24 HOURS 02/23/17 15:00 Blood-Venous Blood Culture - Preliminary NO GROWTH AFTER 24 HOURS Most Recent Lab Values WBC 12.7 10^3/ul (4.5-11.0) H D 02/25/17 06:30 RBC 3.75 10^6/uL (3.5-6.1) 02/25/17 06:30 Hgb 11.6 gm/dL (14.0-18.0) L 02/25/17 06:30 Hct 34.2 % (42.0-52.0) L 02/25/17 06:30 MCV 91.2 fL (80.0-105.0) 02/25/17 06:30 MCH 30.9 pg (25.0-35.0) 02/25/17 06:30 MCHC 33.9 g/dl (31.0-37.0) 02/25/17 06:30 RDW 13.0 % (11.5-14.5) 02/25/17 06:30 Plt Count 269 10^3/uL (120.0-450.0) 02/25/17 06:30 MPV 9.8 fl (7.0-11.0) 02/25/17 06:30 Gran % 84.1 % (50.0-68.0) H 02/25/17 06:30 Lymph % (Auto) 7.6 % (22.0-35.0) L 02/25/17 06:30 [place] % (Auto) 8.2 % (1.0-6.0) H 02/25/17 06:30 Eos % (Auto) 0.1 % (1.5-5.0) L 02/25/17 06:30 Baso % (Auto) 0.0 % (0.0-3.0) 02/25/17 06:30 Gran # 10.71 (1.4-6.5) H 02/25/17 06:30 Lymph # 1.0 (1.2-3.4) L 02/25/17 06:30 [place] # 1.1 (0.1-0.6) H 02/25/17 06:30 Eos # 0.0 (0.0-0.7) 02/25/17 06:30 Baso # 0.00 K/mm3 (0.0-2.0) 02/25/17 06:30 Neutrophils % (Manual) 81 % (50.0-70.0) H 02/24/17 05:00 Band Neutrophils % 7 % (0-2) H 02/24/17 05:00 Lymphocytes % (Manual) 11 % (22.0-35.0) L 02/24/17 05:00 Monocytes % (Manual) 1 % (1.0-6.0) 02/24/17 05:00 Platelet Evaluation Normal (NORMAL) 02/24/17 05:00 PT 11.5 Seconds (9.9-11.8) 02/23/17 10:15 INR 1.06 (0.93-1.08) 02/23/17 10:15 APTT 27.8 Seconds (23.7-30.8) 02/23/17 10:15 D-Dimer, Quantitative 0.19 mg/L FEU (0-0.50) 02/23/17 10:15 pO2 114 mm/Hg (30-55) H 02/23/17 13:40 VBG pH 7.37 (7.32-7.43) 02/23/17 13:40 VBG pCO2 34.0 (40-60) L 02/23/17 13:40 VBG HCO3 19.7 mmol/l (21-28) L 02/23/17 13:40 VBG Total CO2 20.7 mmol.L (22-28) L 02/23/17 13:40 VBG O2 Sat (Calc) 99.7 % (40-65) H 02/23/17 13:40 VBG Base Excess -4.8 mmol/L (0.0-2.0) L 02/23/17 13:40 VBG Potassium 3.4 mmol/L (3.6-5.2) L 02/23/17 13:40 Sodium 137.0 mmol/L (132-148) 02/23/17 13:40 Chloride 102.0 mmol/L (98-107) 02/23/17 13:40 Glucose 147 mg/dl (75-110) H 02/23/17 13:40 Lactate 5.4 mmol/L (0.7-2.1) H* 02/23/17 13:40 FiO2 21.0 % 02/23/17 13:40 Sodium 136 mmol/L (132-148) 02/25/17 06:30 Potassium 3.7 mmol/L (3.6-5.0) 02/25/17 06:30 Chloride 105 mmol/L (98-107) 02/25/17 06:30 Carbon Dioxide 24 mmol/L (21-33) 02/25/17 06:30 Anion Gap 11 (10-20) 02/25/17 06:30 BUN 14 mg/dL (7-21) 02/25/17 06:30 Creatinine 0.8 mg/dL (0.5-1.4) 02/25/17 06:30 Est GFR ( Amer) > 60 02/25/17 06:30 Est GFR (Non-Af Amer) > 60 02/25/17 06:30 Random Glucose 134 mg/dL (70-110) H 02/25/17 06:30 Lactic Acid 1.7 mmol/L (0.7-2.1) 02/25/17 07:00 Calcium 8.7 mg/dL (8.4-10.5) 02/25/17 06:30 Magnesium 1.9 mg/dL (1.7-2.2) 02/23/17 10:15 Total Bilirubin 0.4 mg/dL (0.2-1.3) 02/25/17 06:30 AST 32 U/L (15-59) 02/25/17 06:30 ALT 47 U/L (7-56) 02/25/17 06:30 Alkaline Phosphatase 64 U/L (38-133) 02/25/17 06:30 Troponin I < 0.01 ng/mL 02/23/17 22:40 Total Protein 6.6 g/dL (5.8-8.3) 02/25/17 06:30 Albumin 3.8 g/dL (3.0-4.8) 02/25/17 06:30 Globulin 2.8 gm/dL 02/25/17 06:30 Albumin/Globulin Ratio 1.4 (1.1-1.8) 02/25/17 06:30 Procalcitonin < 0.05 NG/ML (0.19-0.49) L 02/23/17 13:40 TSH 3rd Generation 0.47 mIU/mL (0.46-4.68) 02/23/17 13:30 Venous Blood Potassium 3.4 mmol/L (3.6-5.2) L 02/23/17 13:40 Urine Color Yellow (YELLOW) 02/23/17 18:53 Urine Appearance Clear (CLEAR) 02/23/17 18:53 Urine pH 6.5 (4.7-8.0) 02/23/17 18:53 Ur Specific [place] 1.015 (1.005-1.035) 02/23/17 18:53 Urine Protein Trace mg/dL (<30 mg/dL) H 02/23/17 18:53 Urine Glucose (UA) 500 mg/dL (NEGATIVE) H 02/23/17 18:53 Urine Ketones Negative mg/dL (NEGATIVE) 02/23/17 18:53 Urine Blood Trace-lysed (NEGATIVE) H 02/23/17 18:53 Urine Nitrate Negative (NEGATIVE) 02/23/17 18:53 Urine Bilirubin Negative (NEGATIVE) 02/23/17 18:53 Urine Urobilinogen 0.2 E.U./dL (<1 E.U./dL) 02/23/17 18:53 Ur Leukocyte Esterase Negative Nadir/uL (NEGATIVE) 02/23/17 18:53 Urine RBC 0 - 2 /hpf (0-2) 02/23/17 18:53 Urine WBC 0 - 2 /hpf (0-6) 02/23/17 18:53 Ur Epithelial Cells 0 - 2 /hpf (0-5) 02/23/17 18:53 Urine Bacteria Trace (NEG) 02/23/17 18:53 Urine Opiates Screen Negative (NEGATIVE) 02/23/17 11:30 Urine Methadone Screen Negative (NEGATIVE) 02/23/17 11:30 Ur Barbiturates Screen Negative (NEGATIVE) 02/23/17 11:30 Ur Phencyclidine Scrn Negative (NEGATIVE) 02/23/17 11:30 Ur Amphetamines Screen Negative (NEGATIVE) 02/23/17 11:30 U Benzodiazepines Scrn Negative (NEGATIVE) 02/23/17 11:30 U Oth Cocaine Metabols Negative (NEGATIVE) 02/23/17 11:30 U Cannabinoids Screen Negative (NEGATIVE) 02/23/17 11:30 HIV 1&2 Ag/Ab, 4th Gen Nonreactive (Nonreactive) 02/23/17 18:31 - Hospital Course Hospital Course: 41 yo M w/PMHx of COPD and former heavy smoker, presents with sudden onset L chest pain and SOB from 5 hours prior while at rest. CXR without active process , wbc 15, and transferred to telemetry under obs for acute dyspnea. CT angiogram negative for PE, lactic acid was 3+, so treated with IV fluids, and lactic acid decreased to 1.7. COPD treated with duonebs, and IV solumedrol. Levaquin started and changed to doxycycline by rec of ID. Clinically improved on physical exam. ECHO with normal EF and mild TR and mild pulmonary hypertension. D/C in fair condition with the following new medications: Medrol dose pack, doxycycline 100mg PO BID, and nicotine gum. Discharge Exam - Head Exam Head Exam: ATRAUMATIC, NORMOCEPHALIC - Eye Exam Eye Exam: EOMI, Normal appearance Pupil Exam: NORMAL ACCOMODATION, PERRL - ENT Exam ENT Exam: Mucous Membranes Moist, Normal Exam - Respiratory Exam Respiratory Exam: NORMAL BREATHING PATTERN, UNREMARKABLE - Cardiovascular Exam Cardiovascular Exam: Tachycardia, +S1, +S2 - GI/Abdominal Exam GI & Abdominal Exam: Soft. absent: Tenderness - Exam External exam: absent: Ecchymosis, Erythema - Neurological Exam Neurological exam: Alert, Oriented x3 - Psychiatric Exam Psychiatric exam: Normal Affect, Normal Mood - Skin Skin Exam: Intact, Normal Color Discharge Plan - Discharge Medications Prescriptions: Doxycycline Hyclate [Doryx] 100 mg PO Q12 #6 cap Methylprednisolone [Medrol Dose Pack (21 tabs)] See Taper PO DAILY #21 mg Nicotine Gum [Nicorette Gum] 2 mg PO Q2 #112 gum - Follow Up Plan Condition: FAIR Disposition: HOME/ ROUTINE Instructions: Angina (DC), Asthma (DC), Heart Healthy Diet (DC), Dyspnea (GEN) Additional Instructions: You are discharged. Please follow-up with your primary physician of choice within one week. Please continue your home medications including advair and albuterol inhaler and take the following new medications: Medrol dose pack with taper and Doxycycline 100mg by mouth by mouth twice daily. Please return to emergency department for worsening of symptoms. Referrals: Felix Rapp MD [Primary Care Provider] - <Jacquelin Conde MD - Last Filed: 02/26/17 12:27> Provider - Provider Date of Admission: 02/23/17 14:48 Attending physician: Jacquelin Conde MD Primary care physician: Felix Rapp MD Hospital Course - Lab Results Lab Results: Micro Results 02/23/17 15:15 Blood-Venous Blood Culture - Preliminary NO GROWTH AFTER 48 HOURS 02/23/17 15:00 Blood-Venous Blood Culture - Preliminary NO GROWTH AFTER 48 HOURS 02/23/17 18:53 Urine Urine Culture - Final No Growth (<1,000 CFU/ML) Most Recent Lab Values WBC 12.7 10^3/ul (4.5-11.0) H D 02/25/17 06:30 RBC 3.75 10^6/uL (3.5-6.1) 02/25/17 06:30 Hgb 11.6 gm/dL (14.0-18.0) L 02/25/17 06:30 Hct 34.2 % (42.0-52.0) L 02/25/17 06:30 MCV 91.2 fL (80.0-105.0) 02/25/17 06:30 MCH 30.9 pg (25.0-35.0) 02/25/17 06:30 MCHC 33.9 g/dl (31.0-37.0) 02/25/17 06:30 RDW 13.0 % (11.5-14.5) 02/25/17 06:30 Plt Count 269 10^3/uL (120.0-450.0) 02/25/17 06:30 MPV 9.8 fl (7.0-11.0) 02/25/17 06:30 Gran % 84.1 % (50.0-68.0) H 02/25/17 06:30 Lymph % (Auto) 7.6 % (22.0-35.0) L 02/25/17 06:30 [place] % (Auto) 8.2 % (1.0-6.0) H 02/25/17 06:30 Eos % (Auto) 0.1 % (1.5-5.0) L 02/25/17 06:30 Baso % (Auto) 0.0 % (0.0-3.0) 02/25/17 06:30 Gran # 10.71 (1.4-6.5) H 02/25/17 06:30 Lymph # 1.0 (1.2-3.4) L 02/25/17 06:30 [place] # 1.1 (0.1-0.6) H 02/25/17 06:30 Eos # 0.0 (0.0-0.7) 02/25/17 06:30 Baso # 0.00 K/mm3 (0.0-2.0) 02/25/17 06:30 Neutrophils % (Manual) 81 % (50.0-70.0) H 02/24/17 05:00 Band Neutrophils % 7 % (0-2) H 02/24/17 05:00 Lymphocytes % (Manual) 11 % (22.0-35.0) L 02/24/17 05:00 Monocytes % (Manual) 1 % (1.0-6.0) 02/24/17 05:00 Platelet Evaluation Normal (NORMAL) 02/24/17 05:00 PT 11.5 Seconds (9.9-11.8) 02/23/17 10:15 INR 1.06 (0.93-1.08) 02/23/17 10:15 APTT 27.8 Seconds (23.7-30.8) 02/23/17 10:15 D-Dimer, Quantitative 0.19 mg/L FEU (0-0.50) 02/23/17 10:15 pO2 114 mm/Hg (30-55) H 02/23/17 13:40 VBG pH 7.37 (7.32-7.43) 02/23/17 13:40 VBG pCO2 34.0 (40-60) L 02/23/17 13:40 VBG HCO3 19.7 mmol/l (21-28) L 02/23/17 13:40 VBG Total CO2 20.7 mmol.L (22-28) L 02/23/17 13:40 VBG O2 Sat (Calc) 99.7 % (40-65) H 02/23/17 13:40 VBG Base Excess -4.8 mmol/L (0.0-2.0) L 02/23/17 13:40 VBG Potassium 3.4 mmol/L (3.6-5.2) L 02/23/17 13:40 Sodium 137.0 mmol/L (132-148) 02/23/17 13:40 Chloride 102.0 mmol/L (98-107) 02/23/17 13:40 Glucose 147 mg/dl (75-110) H 02/23/17 13:40 Lactate 5.4 mmol/L (0.7-2.1) H* 02/23/17 13:40 FiO2 21.0 % 02/23/17 13:40 Sodium 136 mmol/L (132-148) 02/25/17 06:30 Potassium 3.7 mmol/L (3.6-5.0) 02/25/17 06:30 Chloride 105 mmol/L (98-107) 02/25/17 06:30 Carbon Dioxide 24 mmol/L (21-33) 02/25/17 06:30 Anion Gap 11 (10-20) 02/25/17 06:30 BUN 14 mg/dL (7-21) 02/25/17 06:30 Creatinine 0.8 mg/dL (0.5-1.4) 02/25/17 06:30 Est GFR ( Amer) > 60 02/25/17 06:30 Est GFR (Non-Af Amer) > 60 02/25/17 06:30 Random Glucose 134 mg/dL (70-110) H 02/25/17 06:30 Lactic Acid 1.7 mmol/L (0.7-2.1) 02/25/17 07:00 Calcium 8.7 mg/dL (8.4-10.5) 02/25/17 06:30 Magnesium 1.9 mg/dL (1.7-2.2) 02/23/17 10:15 Total Bilirubin 0.4 mg/dL (0.2-1.3) 02/25/17 06:30 AST 32 U/L (15-59) 02/25/17 06:30 ALT 47 U/L (7-56) 02/25/17 06:30 Alkaline Phosphatase 64 U/L (38-133) 02/25/17 06:30 Troponin I < 0.01 ng/mL 02/23/17 22:40 Total Protein 6.6 g/dL (5.8-8.3) 02/25/17 06:30 Albumin 3.8 g/dL (3.0-4.8) 02/25/17 06:30 Globulin 2.8 gm/dL 02/25/17 06:30 Albumin/Globulin Ratio 1.4 (1.1-1.8) 02/25/17 06:30 Procalcitonin < 0.05 NG/ML (0.19-0.49) L 02/23/17 13:40 TSH 3rd Generation 0.47 mIU/mL (0.46-4.68) 02/23/17 13:30 Venous Blood Potassium 3.4 mmol/L (3.6-5.2) L 02/23/17 13:40 Urine Color Yellow (YELLOW) 02/23/17 18:53 Urine Appearance Clear (CLEAR) 02/23/17 18:53 Urine pH 6.5 (4.7-8.0) 02/23/17 18:53 Ur Specific [place] 1.015 (1.005-1.035) 02/23/17 18:53 Urine Protein Trace mg/dL (<30 mg/dL) H 02/23/17 18:53 Urine Glucose (UA) 500 mg/dL (NEGATIVE) H 02/23/17 18:53 Urine Ketones Negative mg/dL (NEGATIVE) 02/23/17 18:53 Urine Blood Trace-lysed (NEGATIVE) H 02/23/17 18:53 Urine Nitrate Negative (NEGATIVE) 02/23/17 18:53 Urine Bilirubin Negative (NEGATIVE) 02/23/17 18:53 Urine Urobilinogen 0.2 E.U./dL (<1 E.U./dL) 02/23/17 18:53 Ur Leukocyte Esterase Negative Nadir/uL (NEGATIVE) 02/23/17 18:53 Urine RBC 0 - 2 /hpf (0-2) 02/23/17 18:53 Urine WBC 0 - 2 /hpf (0-6) 02/23/17 18:53 Ur Epithelial Cells 0 - 2 /hpf (0-5) 02/23/17 18:53 Urine Bacteria Trace (NEG) 02/23/17 18:53 Urine Opiates Screen Negative (NEGATIVE) 02/23/17 11:30 Urine Methadone Screen Negative (NEGATIVE) 02/23/17 11:30 Ur Barbiturates Screen Negative (NEGATIVE) 02/23/17 11:30 Ur Phencyclidine Scrn Negative (NEGATIVE) 02/23/17 11:30 Ur Amphetamines Screen Negative (NEGATIVE) 02/23/17 11:30 U Benzodiazepines Scrn Negative (NEGATIVE) 02/23/17 11:30 U Oth Cocaine Metabols Negative (NEGATIVE) 02/23/17 11:30 U Cannabinoids Screen Negative (NEGATIVE) 02/23/17 11:30 HIV 1&2 Ag/Ab, 4th Gen Nonreactive (Nonreactive) 02/23/17 18:31 Attending/Attestation - Attestation I have personally seen and examined this patient.: Yes I have fully participated in the care of the patient.: Yes I have reviewed all pertinent clinical information, including history, physical exam and plan: Yes Notes (Text): 02/26/17 12:22 Patient was seen and examined with medical administrator .Agreed with resident assessment and plan. 41 yrs old male with PMH of COPD/HTN/Alcohol and chronic smoking was admitted with atypical chest pain and COPD/Asthma exacerbation.Patient was also found to have lactic acidosis likely due to alcohol .Patient cough and dyspnea has improved.His Lactic acid has come back to normal.His Blod cultures are negative for any growth.His procalcitonin level was normal.He is ambulatory and will be discharged home and will follow up with PCP. The issue of ongoing alcohol and chronic smoking was discussed in detail with him. Management plan was discussed in detail with patient Education was provided.
--- NOTE | 2017-02-25 11:54 | PN ---
DATE: 02/25/2017 The patient denies any chest pain at this time. Shortness of breath improved. PHYSICAL EXAMINATION: VITAL SIGNS: Blood pressure , heart rate 75, temperature 97.5, respirations 20. HEENT: Normocephalic. CHEST: Revealed no evidence of . EXTREMITIES: No edema. Echocardiography study report revealed normal left ventricular size, wall thickness, ejection fractio n, segmental wall motion and diastolic function. There was mild pulmonary hypertension. Abdominal u ltrasound, hepatomegaly, right renal agenesis. ASSESSMENT: 1. Atypical chest pain. 2. Bronchial asthma. 3. Hypertension, most likely related to recent steroid therapy. RECOMMENDATIONS: Continue current conservative medical approach. No invasive cardiac workup is indic ated. Georgi Estevez MD cc: [id number] TT: 02/25/2017 11:53:22 Confirmation # [id number] Dictation # [id number] addison
--- NOTE | 2017-02-25 13:58 | PN ---
DATE: 02/25/2017 The patient seen earlier today. An anxious man who is doing well, much better he states. PHYSICAL EXAMINATION: VITAL SIGNS: Temperature is ____, blood pressure is 150/70, respiratory rate of 16. HEENT: Unremarkable. NECK: Supple. LUNGS: Decreased breath sounds. HEART: Normal S1, S2. ABDOMEN: Soft. LABORATORY DATA: Reveals a white count of 12,700; hemoglobin 11. BUN of 14, creatinine of 0.8. Uri nalysis is noted and HIV is nonreactive. Blood cultures are negative. Urine cultures are negative. ASSESSMENT AND PLAN: A 41-year-old male with chronic obstructive pulmonary disease, heavy smoker, al cohol user, renal vein thrombosis, who was admitted with systemic inflammatory response syndrome, acu te exacerbation of chronic obstructive pulmonary disease. Continues to be a heavy smoker and advised smoking cessation and smoking cessation steps taken. Currently off of intravenous antibiotics. The patient for possible discharge today. Will follow up with primary medical doctor. Delmer Barrientos MD cc: [phone] TT: 02/25/2017 13:57:20 Confirmation # [id number] Dictation # [id number] sn
== END 2017-02-25 13:18 | disposition home or self-care (01) ==
LOC: ED 09:51 → MERGE 10:51 → ERH 10:51 → OBSVTOIN 14:48 → INTOOBSV 14:48 → 2RNO 16:13
PROVIDERS: ADMIT Internal Medicine; ATTEND Internal Medicine
DX: J44.1 Chronic obstructive pulmonary disease with (acute) exacerbation (principal); R65.10 Systemic inflammatory response syndrome (SIRS) of non-infectious origin without acute organ dysfunction; E87.2 Acidosis; E87.6 Hypokalemia; F17.200 Nicotine dependence, unspecified, uncomplicated; I10 Essential (primary) hypertension; I27.2 Other secondary pulmonary hypertension; J45.909 Unspecified asthma, uncomplicated; T38.0X5A Adverse effect of glucocorticoids and synthetic analogues, initial encounter; Z83.3 Family history of diabetes mellitus; Z86.718 Personal history of other venous thrombosis and embolism; Z91.14 Patient's other noncompliance with medication regimen; M94.0 Chondrocostal junction syndrome [Tietze]; F10.10 Alcohol abuse, uncomplicated; R07.89 Other chest pain

== ENCOUNTER 2017-03-07 13:51 | Emergency (ER) | payer MEDICAID ==
[2017-03-07 13:53] VITALS: BMI 28.1
[2017-03-07 14:14] VITALS: TEMP 98.1
[2017-03-07] MEDS ORDERED: guaiFENesin 200 mg/10 ml Syrup UD PO STA (14:23)
[2017-03-07] MEDS ORDERED: Ipratropium 0.02% Inhal Soln (0.5 mg/2.5 ml) UD IH STA ×2 (14:23)
--- NOTE | 2017-03-07 14:26 | ED PDOC ---
Arrival/HPI - General Chief Complaint: Medical Clearance Time Seen by Provider: 03/07/17 14:06 Historian: Patient - History of Present Illness Narrative History of Present Illness (Text): 03/07/17 14:42 A 41 year old male presents to the emergency department, sent from urgent care, complaining of chest tightness and wheezing. Patient reports worsening shortness of breath this morning and using inhaler. Patient notes chest tightness is more aching on the right side and worse with deep breathes. Patient denies abdominal pain, fever, nausea, vomiting, chest pain or any other complaints at this time. Symptom Onset: Sudden Symptom Course: Unchanged Activities at Onset: Rest Modifying Factors (Text): none Context: Other (urgent care) Past Medical History - Provider Review Nursing Documentation Reviewed: Yes - Infectious Disease Hx of Infectious Diseases: None - Cardiac Hx Hypertension: Yes - Pulmonary Hx Asthma: Yes - Renal Other/Comment: One kidney - Musculoskeletal/Rheumatological Hx Falls: No - Gastrointestinal Hx Gastroesophageal Reflux: Yes - Psychiatric Hx Anxiety: Yes Hx Substance Use: No Family/Social History - Physician Review Nursing Documentation Reviewed: Yes Family/Social History: No Known Family HX Smoking Status: Heavy Smoker > 10 Cigarettes Daily Hx Alcohol Use: Yes Hx Substance Use: No Allergies/Home Meds Allergies/Adverse Reactions: Allergies seasonal Allergy (Uncoded 03/07/17 14:24) CONGESTION Home Medications: Home Meds Medication Instructions Recorded Confirmed Cetirizine HCl [Allergy Relief] 10 mg PO DAILY 02/23/17 03/07/17 Lisinopril [Zestril] 10 mg PO DAILY 02/23/17 03/07/17 Montelukast [Singulair] 10 mg PO DAILY 02/23/17 03/07/17 Review of Systems - Physician Review All systems were reviewed & negative as marked: Yes - Review of Systems Constitutional: absent: Fevers Respiratory: SOB, Wheezing Cardiovascular: Other (chest tightness). absent: Chest Pain Gastrointestinal: absent: Abdominal Pain, Nausea, Vomiting Physical Exam Vital Signs Reviewed: Yes Vital Signs Temp Pulse Resp BP Pulse Ox 03/07/17 14:09 98.1 F 61 18 135/66 99 Temperature: Afebrile Blood Pressure: Normal Pulse: Regular Respiratory Rate: Normal Appearance: Positive for: Well-Appearing, Non-Toxic, Comfortable Pain Distress: None Mental Status: Positive for: Alert and Oriented X 3 - Systems Exam Head: Present: Atraumatic, Normocephalic Pupils: Present: PERRL Conjunctiva: Present: Normal Mouth: Present: Moist Mucous Membranes Pharnyx: Present: Normal. No: ERYTHEMA, EXUDATE Neck: Present: Normal Range of Motion Respiratory/Chest: Present: Wheezes (scattered bilateral), Decreased Breath Sounds, Other (mild diminished air entry) Cardiovascular: Present: Regular Rate and Rhythm, Normal S1, S2. No: Murmurs Abdomen: Present: Normal Bowel Sounds. No: Tenderness, Distention, Peritoneal Signs Back: Present: Normal Inspection Upper Extremity: Present: Normal Inspection. No: Cyanosis, Edema Lower Extremity: Present: Normal Inspection. No: Edema Neurological: Present: GCS=15, CN II-XII Intact, Speech Normal Skin: Present: Warm, Dry, Normal Color. No: Rashes Psychiatric: Present: Alert, Oriented x 3, Normal Insight, Normal Concentration Medical Decision Making ED Course and Treatment: 03/07/17 14:39 Impression: A 41 year old male with chest tightness and wheezing. Differential Diagnosis included but are not limited to: COPD exacerbation vs muscular pain vs less likely CS Plan: -- EKG -- chest xray -- labs -- Reassess and disposition Prior Visits: Notes and results from previous visits were reviewed. Patient was last reported to emergency department on 02/23/17 for evaluation of acute shortness of breath and tachypnea. Patient was discharged on 02/25/17. Progress Notes: EKG: Ordered, reviewed, and independently interpreted the EKG. Rate : 61 BPM Rhythm : NSR Interpretation : QRS 114, incomplete RBBB, normal axis Comparison : No previous EKG for comparison. chest xray: Creator : Esperanza Andres MD 03/07/2017 14:55 IMPRESSION: No focal airspace opacity. Please note that chest radiographs have low sensitivity for small pulmonary nodules. If indicated, chest CT should be obtained. 03/07/17 15:04 Patient with noted history and exam is consistent with copd. Echo done recently was normal. Patient has not had a stress test, so would like to get CE. 03/07/17 15:32 CE are negative. Repeat lung exam is much improved. Patient already has an appt with cardiology this week - ok for d/c. - Lab Interpretations Lab Results: 03/07/17 14:35 03/07/17 14:35 Lab Results 03/07/17 14:35: Sodium 136, Potassium 3.7, Chloride 102, Carbon Dioxide 25, Anion Gap 13, BUN 15, Creatinine 0.9, Est GFR ( Amer) > 60, Est GFR (Non- Af Amer) > 60, Random Glucose 100, Calcium 8.9, Magnesium 1.9, Total Bilirubin 0.9, AST 43, ALT 102 H, Alkaline Phosphatase 116, Lactate Dehydrogenase 448, Total Creatine Kinase 98, Troponin I < 0.01, Total Protein 7.0, Albumin 3.9, Globulin 3.1, Albumin/Globulin Ratio 1.3 03/07/17 14:35: WBC 7.5 D, RBC 3.95, Hgb 12.3 L, Hct 35.8 L, MCV 90.6, MCH 31.1 , MCHC 34.4, RDW 13.0, Plt Count 234, MPV 9.1, Gran % 60.7, Lymph % (Auto) 26.6 , [place] % (Auto) 10.0 H, Eos % (Auto) 2.4, Baso % (Auto) 0.3, Gran # 4.53, Lymph # 2.0, [place] # 0.8 H, Eos # 0.2, Baso # 0.02 I have reviewed the lab results: Yes - RAD Interpretation Radiology Orders: 03/07/17 14:23 CHEST PORTABLE [RAD] Stat - EKG Interpretation Interpreted by ED Physician: Yes Type: 12 lead EKG - Medication Orders Current Medication Orders: Discontinued Medications Guaifenesin (Robitussin) 400 mg PO ONCE STA Stop: 03/07/17 14:24 Last Admin: 03/07/17 14:41 Dose: 400 mg Ipratropium [place] (Atrovent) 0.5 mg IH STAT STA Stop: 03/07/17 14:24 Last Admin: 03/07/17 14:41 Dose: 0.5 mg Ipratropium [place] (Atrovent) 0.5 mg IH STAT STA Stop: 03/07/17 14:24 Last Admin: 03/07/17 14:41 Dose: 0.5 mg Levalbuterol HCl (Xopenex) 1.25 mg IH STAT STA Stop: 03/07/17 14:24 Last Admin: 03/07/17 15:09 Dose: 1.25 mg Levalbuterol HCl (Xopenex) 1.25 mg IH STAT STA Stop: 03/07/17 14:24 Last Admin: 03/07/17 15:09 Dose: 1.25 mg Methylprednisolone (Solu-Medrol) 125 mg IVP STAT STA Stop: 03/07/17 14:24 Last Admin: 03/07/17 14:41 Dose: 125 mg - Scribe Statement The provider has reviewed the documentation as recorded by the Tamara Conde Provider Tamara Attestation: All medical record entries made by the Tamara were at my direction and personally dictated by me. I have reviewed the chart and agree that the record accurately reflects my personal performance of the history, physical exam, medical decision making, and the department course for this patient. I have also personally directed, reviewed, and agree with the discharge instructions and disposition. Disposition/Present on Arrival - Present on Arrival Any Indicators Present on Arrival: No History of DVT/PE: No History of Uncontrolled Diabetes: No Urinary Catheter: No History of Decub. Ulcer: No History Surgical Site Infection Following: None - Disposition Have Diagnosis and Disposition been Completed?: Yes Diagnosis: COPD exacerbation Disposition: HOME/ ROUTINE Disposition Time: 15:35 Patient Plan: Discharge Condition: GOOD Discharge Instructions (ExitCare): COPD (Chronic Obstructive Pulmonary Disease ) (ED) Additional Instructions: Continue to avoid cigarettes. Take the medications as prescribed. Follow up with your primary care doctor and cardiology as scheduled. Return to the emergency department if any new concerning symptoms. Prescriptions: Albuterol HFA [Ventolin HFA 90 mcg/actuation (8 g)] 2 puff IH Q4H #1 inhaler predniSONE [Prednisone] 2 tab PO DAILY #8 tab Referrals: Flaca Price DO [Primary Care Provider] - Follow up with primary
[2017-03-07 14:46] LABS: ADD MANUAL DIFF? NO
--- NOTE | 2017-03-07 14:52 | RAD ---
PROCEDURE: CHEST RADIOGRAPH, 1 VIEW HISTORY: sob COMPARISON: 02/23/2017 FINDINGS: LUNGS: Clear. PLEURA: No pneumothorax or pleural fluid seen. CARDIOVASCULAR: Normal. OSSEOUS STRUCTURES: No significant abnormalities. VISUALIZED UPPER ABDOMEN: Normal. OTHER FINDINGS: None. IMPRESSION: No focal airspace opacity. Please note that chest radiographs have low sensitivity for small pulmonary nodules. If indicated, chest CT should be obtained.
[2017-03-07 14:57] LABS: BASO # 0.02 K/mm3 (0.0-2.0); BASO % 0.3 % (0.0-3.0); EOS # 0.2 (0.0-0.7); EOS % 2.4 % (1.5-5.0); GRAN # 4.53 (1.4-6.5); GRAN % 60.7 % (50.0-68.0); HEMATOCRIT 35.8 % (42.0-52.0); LYMPH % 26.6 % (22.0-35.0); MEAN CELL VOLUME 90.6 fL (80.0-105.0); MEAN CORPUSCULAR HEMOGLOBIN 31.1 pg (25.0-35.0); MEAN CORPUSCULAR HGB CONC 34.4 g/dl (31.0-37.0); MEAN PLATELET VOLUME 9.1 fl (7.0-11.0); MONO # 0.8 (0.1-0.6); PLATELET COUNT 234 10^3/uL (120.0-450.0); WHITE BLOOD COUNT 7.5 10^3/ul (4.5-11.0)
[2017-03-07] MEDS: Levalbuterol 1.25 MG/3 ML Inhal Soln UD IH STA ×6 (15:00→15:09)
[2017-03-07 15:05] LABS: ALB/GLOB RATIO 1.3 (1.1-1.8); ALKALINE PHOSPHATASE 116 U/L (38-133); ALT/SGPT 102 U/L (7-56); AST/SGOT 43 U/L (15-59); BILIRUBIN,TOTAL 0.9 mg/dL (0.2-1.3); BLOOD UREA NITROGEN 15 mg/dL (7-21); CALCIUM 8.9 mg/dL (8.4-10.5); CARBON DIOXIDE 25 mmol/L (21-33); CHLORIDE 102 mmol/L (98-107); GFR AFRICAN-AMERICAN > 60; GLUCOSE,RANDOM 100 mg/dL (70-110); MAGNESIUM 1.9 mg/dL (1.7-2.2); POTASSIUM 3.7 mmol/L (3.6-5.0); SODIUM 136 mmol/L (132-148)
[2017-03-07 15:17] LABS: TROPONIN I < 0.01 ng/mL
[2017-03-07 15:43] VITALS: BP 144/82; PULSE 65; RESP 16; O2SAT 98
--- NOTE | 2017-03-08 11:45 | CARD ---
APPROVED REPORT EKG Measurement Heart [id number] PA 130P34 [id number] <Conclusion> RSR Normal ECG Improved repolarization c/w ECG 02/23/17
== END 2017-03-07 15:48 | disposition home or self-care (01) ==
LOC: MERGE 13:51 → ED 13:51
DX: J44.1 Chronic obstructive pulmonary disease with (acute) exacerbation (principal)
CPT/HCPCS: 71010; 80053; 82550; 83615; 83735; 84484; 85025; 93005; 96374; 99282; J2930

== ENCOUNTER 2017-05-19 10:11 | Emergency (ER) | payer MEDICAID ==
[2017-05-19 10:28] VITALS: BMI 27.3
--- NOTE | 2017-05-19 11:03 | ED PDOC ---
Arrival/HPI - General Chief Complaint: Shortness Of Breath Time Seen by Provider: 05/19/17 10:22 Historian: Patient - History of Present Illness Narrative History of Present Illness (Text): 05/19/17 10:27 Felix Wilson is a 41 year old male, whose past medical history includes COPD , hepatomegaly, and anxiety, presents to the Emergency department complaining of shortness of breath since this morning at 5:00. Patient reports when he woke up, he walked to the bathroom and began to feel mild chest tightness, dizziness , and nausea. He notes that he has quit smoking and stopped using his daily inhaler since he felt improvement in his breathing. Patient denies headache, fever, chills, cough, vomiting, diarrhea, abdominal pain, lower extremity pain/ swelling, recent surgery, recent prolonged immobilization, or other complaints. PMD: Dr. Price Time/Duration: Other (this morning at 5:00) Symptom Onset: Sudden Quality: Pressure (mild chest pressure) Activities at Onset: Light Modifying Factors (Text): None Context: Walking, Home Associated Symptoms (Text): mild chest tightness, nausea, and dizziness Past Medical History - Provider Review Nursing Documentation Reviewed: Yes - Infectious Disease Hx of Infectious Diseases: None - Cardiac Hx Hypertension: Yes - Pulmonary Hx Asthma: Yes Hx Respiratory Aspiration: Yes - Renal Other/Comment: One kidney - Musculoskeletal/Rheumatological Hx Falls: No - Gastrointestinal Hx Gastroesophageal Reflux: Yes - Psychiatric Hx Anxiety: Yes Hx Substance Use: No Family/Social History - Physician Review Nursing Documentation Reviewed: Yes Family/Social History: Unknown Family HX Smoking Status: Heavy Smoker > 10 Cigarettes Daily Hx Alcohol Use: Yes Hx Substance Use: No Allergies/Home Meds Allergies/Adverse Reactions: Allergies seasonal Allergy (Uncoded 03/07/17 14:24) CONGESTION Home Medications: Home Meds Medication Instructions Recorded Confirmed Cetirizine HCl [Allergy Relief] 10 mg PO DAILY 02/23/17 05/19/17 Lisinopril [Zestril] 10 mg PO DAILY 02/23/17 05/19/17 Montelukast [Singulair] 10 mg PO DAILY 02/23/17 05/19/17 Review of Systems - Physician Review All systems were reviewed & negative as marked: Yes - Review of Systems Constitutional: absent: Fevers Respiratory: SOB Cardiovascular: Chest Pain (mild chest tightness) Gastrointestinal: Nausea Musculoskeletal: absent: Neck Pain Neurological: Dizziness. absent: Headache Physical Exam Vital Signs Reviewed: Yes Vital Signs Pulse Resp BP Pulse Ox 05/19/17 12:59 87 18 139/60 97 05/19/17 10:28 83 19 156/97 H 99 Temperature: Afebrile (98F (oral)) Blood Pressure: Hypertensive Pulse: Regular Respiratory Rate: Normal Appearance: Positive for: Well-Appearing, Non-Toxic, Comfortable Pain Distress: None Mental Status: Positive for: Alert and Oriented X 3 - Systems Exam Head: Present: Atraumatic, Normocephalic Pupils: Present: PERRL Extroacular Muscles: Present: EOMI Conjunctiva: Present: Normal Mouth: Present: Moist Mucous Membranes Neck: Present: Normal Range of Motion Respiratory/Chest: Present: Clear to Auscultation, Good Air Exchange. No: Respiratory Distress, Accessory Muscle Use, Wheezes, Retracting, Rhonchi, Tachypneic Cardiovascular: Present: Regular Rate and Rhythm, Normal S1, S2. No: Murmurs Abdomen: Present: Normal Bowel Sounds. No: Tenderness, Distention, Peritoneal Signs Back: Present: Normal Inspection Upper Extremity: Present: Normal Inspection. No: Cyanosis, Edema Lower Extremity: Present: Normal Inspection. No: Edema Neurological: Present: GCS=15, CN II-XII Intact, Speech Normal Skin: Present: Warm, Dry, Normal Color. No: Rashes Psychiatric: Present: Alert, Oriented x 3, Normal Insight, Normal Concentration Medical Decision Making ED Course and Treatment: 05/19/17 10:27 Impression: 41 year old male with shortness of breath. Differential Diagnosis included but are not limited to: shortness of breath secondary to anxiety vs. COPD vs. pulmonary embolism (less likely) Plan: -- EKG -- Chest X-ray -- Labs -- Ativan -- Reassess and disposition Progress Notes: EKG: Ordered, reviewed, and independently interpreted the EKG. Rate : 78 BPM Rhythm : NSR Interpretation : No ST-segment elevations or depressions, no T-wave inversions, normal intervals. Comparison : No previous EKG for comparison. 05/19/2017 13:25 Chest X-ray: Creator : Randy Iraheta MD COMPARISON:03/07/2017 FINDINGS: LUNGS:No active pulmonary disease. PLEURA:No significant pleural effusion identified, no pneumothorax apparent. CARDIOVASCULAR:Normal. OSSEOUS STRUCTURES: No significant abnormalities. VISUALIZED UPPER ABDOMEN:Normal. OTHER FINDINGS: None. IMPRESSION: No active disease. 05/19/17 13:30 Reevaluation: Patient's blood work reviewed and normal. PANCHITO score and Well's Score zero. Patient feels symptoms resolved except mild nausea after Ativan given. Zofran ordered. On reevaluation the patient feels better, is in no acute distress. I have discussed the results and plan with the patient and his partner, who expresses understanding. Patient given the opportunity to ask question, all questions were answered and there is agreement with the plan to discharge the patient. Patient is stable for discharge. Patient was instructed to follow up with physician/clinic in 1-2 days or return if symptoms persist/worsen or new concerning symptoms arise. - Lab Interpretations Lab Results: 05/19/17 11:25 05/19/17 11:25 Lab Results 05/19/17 11:25: Sodium 138, Potassium 4.0, Chloride 101, Carbon Dioxide 27, Anion Gap 14, BUN 17, Creatinine 0.8, Est GFR ( Amer) > 60, Est GFR (Non- Af Amer) > 60, Random Glucose 100, Calcium 9.1, Total Bilirubin 0.5, AST 51, ALT 53, Alkaline Phosphatase 74, Lactate Dehydrogenase 474, Total Creatine Kinase 93, Troponin I < 0.01, NT-Pro-B Natriuret Pep 222, Total Protein 6.9, Albumin 4.2, Globulin 2.8, Albumin/Globulin Ratio 1.5 05/19/17 11:25: PT 12.4 H, INR 1.15 H, APTT 28.2, D-Dimer, Quantitative 0.22 05/19/17 11:25: WBC 5.8 D, RBC 3.89, Hgb 12.0 L, Hct 34.6 L, MCV 88.9, MCH 30.8 , MCHC 34.7, RDW 12.0, Plt Count 266, MPV 9.0, Gran % 71.8 H, Lymph % (Auto) 20.1 L, [place] % (Auto) 5.8, Eos % (Auto) 2.1, Baso % (Auto) 0.2, Gran # 4.19, Lymph # 1.2, [place] # 0.3, Eos # 0.1, Baso # 0.01 I have reviewed the lab results: Yes - RAD Interpretation Radiology Orders: 05/19/17 10:34 CHEST PORTABLE [RAD] Stat - EKG Interpretation Interpreted by ED Physician: Yes Type: 12 lead EKG - Medication Orders Current Medication Orders: Discontinued Medications Lorazepam (Ativan) 2 mg PO ONCE ONE PRN Reason: Protocol Stop: 05/19/17 10:35 Last Admin: 05/19/17 10:55 Dose: 2 mg Ondansetron HCl (Zofran Odt) 4 mg PO STAT STA Stop: 05/19/17 12:31 PANCHITO Risk Score for UA/NSTEMI - PANCHITO Risk Score Age > 64: NO 3 or more CAD Risk Factors: NO Known CAD (Stenosis greater than 50%): NO Aspirin use in past 7 days: NO Severe Angina: NO EKG ST changes greater than 0.5mm: NO Positive Cardiac Marker: NO PANCHITO Score: 0 % risk at 14 days of: all cause mortality, new or recurrent HI, or severe recurrent ischemia requiring urgen revascularization: 5% Wells Criteria for PE - Wells Criteria for Pulmonary Embolism Clinical Signs and Symptoms of DVT: No P.E is #1 Diagnosis, or Equally Likely: No Heart Rate >100: No Immobilization at least 3 days;Surgery previous 4 weeks: No Previous, objectively diagnosed PE or DVT: No Hemoptysis: No Malignancy w/treatment within 6 months, or palliative: No Total Score: 0 - Scribe Statement The provider has reviewed the documentation as recorded by the Scribe 05/19/2017 Tania Benitez Provider Scribe Attestation: All medical record entries made by the Scribe were at my direction and personally dictated by me. I have reviewed the chart and agree that the record accurately reflects my personal performance of the history, physical exam, medical decision making, and the department course for this patient. I have also personally directed, reviewed, and agree with the discharge instructions and disposition. Disposition/Present on Arrival - Present on Arrival Any Indicators Present on Arrival: No History of DVT/PE: No History of Uncontrolled Diabetes: No Urinary Catheter: No History of Decub. Ulcer: No History Surgical Site Infection Following: None - Disposition Have Diagnosis and Disposition been Completed?: Yes Diagnosis: Shortness of breath Disposition: HOME/ ROUTINE Disposition Time: 12:58 Patient Plan: Discharge Condition: IMPROVED Discharge Instructions (ExitCare): Dyspnea (ED), Anxiety (ED) Additional Instructions: Mr Wilson, thank you for letting us take care of you today. Your provider was Dr. Oneal. You were treated for Shortness of Breathe. The emergency medical care you received today was directed at your acute symptoms. If you were prescribed any medication, please fill it and take as directed. It may take several days for your symptoms to resolve. Return to the Emergency Department if your symptoms worsen, do not improve, or if you have any other problems. Please contact your doctor or call one of the physicians/clinics you have been referred to that are listed on the Patient Visit Information form that is included in your discharge packet. Bring any paperwork you were given at discharge with you along with any medications you are taking to your follow up visit. Our treatment cannot replace ongoing medical care by a primary care provider (PCP) outside of the emergency department. Thank you for allowing the [facility] team to be part of your care today. If you had an X-Ray or CT scan: A Radiologist will review the ED reading if any change in treatment is needed we will contact you. If you had a blood, urine, or wound culture: It will take several days for the results, if any change in treatment is needed we will contact you. If you had an STI test: It will take 48 hours for the results. Please call after 1 week if you have not heard back. Prescriptions: Albuterol HFA [Ventolin HFA 90 mcg/actuation (8 g)] 2 puff IH Q4 #1 puff Referrals: Moshe Price APN [Primary Care Provider] - Follow up with primary Forms: [employer] ([place]), WORK NOTE
[2017-05-19 11:43] LABS: BASO # 0.01 K/mm3 (0.0-2.0); BASO % 0.2 % (0.0-3.0); EOS # 0.1 (0.0-0.7); EOS % 2.1 % (1.5-5.0); GRAN # 4.19 (1.4-6.5); GRAN % 71.8 % (50.0-68.0); LYMPH # 1.2 (1.2-3.4); LYMPH % 20.1 % (22.0-35.0); MEAN CELL VOLUME 88.9 fL (80.0-105.0); MEAN CORPUSCULAR HEMOGLOBIN 30.8 pg (25.0-35.0); MEAN CORPUSCULAR HGB CONC 34.7 g/dl (31.0-37.0); MONO # 0.3 (0.1-0.6); MONO % 5.8 % (1.0-6.0); PLATELET COUNT 266 10^3/uL (120.0-450.0); RBC 3.89 10^6/uL (3.5-6.1); WHITE BLOOD COUNT 5.8 10^3/ul (4.5-11.0)
[2017-05-19 11:52] LABS: ALB/GLOB RATIO 1.5 (1.1-1.8); ALBUMIN 4.2 g/dL (3.0-4.8); ALT/SGPT 53 U/L (7-56); AST/SGOT 51 U/L (15-59); BLOOD UREA NITROGEN 17 mg/dL (7-21); CALCIUM 9.1 mg/dL (8.4-10.5); GFR AFRICAN-AMERICAN > 60; GFR NON-AFRICAN AMERICAN > 60
[2017-05-19 11:55] LABS: INR 1.15 (0.93-1.08); PARTIAL THROMBOPLASTIN TIME 28.2 Seconds (23.7-30.8); PROTHROMBIN TIME 12.4 Seconds (9.9-11.8)
[2017-05-19 11:56] LABS: D DIMER 0.22 mg/L FEU (0-0.50)
[2017-05-19 12:04] LABS: B-TYPE NATRIURETIC PEPTIDE 222 pg/mL (0-450)
[2017-05-19 12:05] LABS: TROPONIN I < 0.01 ng/mL
[2017-05-19 13:00] VITALS: BP 139/60; PULSE 87; RESP 18; O2SAT 97
--- NOTE | 2017-05-19 13:23 | RAD ---
HISTORY: sob r/o pna COMPARISON: 03/07/2017 FINDINGS: LUNGS: No active pulmonary disease. PLEURA: No significant pleural effusion identified, no pneumothorax apparent. CARDIOVASCULAR: Normal. OSSEOUS STRUCTURES: No significant abnormalities. VISUALIZED UPPER ABDOMEN: Normal. OTHER FINDINGS: None. IMPRESSION: No active disease.
--- NOTE | 2017-05-19 17:28 | CARD ---
APPROVED REPORT EKG Measurement Heart [id number] 134P30 [id number] <Conclusion> Normal sinus rhythm Normal ECG
== END 2017-05-19 12:59 | disposition home or self-care (01) ==
LOC: ED 10:11
DX: R06.02 Shortness of breath (principal)

== ENCOUNTER 2018-02-23 21:23 | Emergency (ER) | payer MEDICAID ==
[2018-02-23 21:31] VITALS: BMI 27.4
--- NOTE | 2018-02-23 21:56 | ED PDOC ---
Arrival/HPI - General Chief Complaint: Chest Pain Time Seen by Provider: 02/23/18 21:30 Historian: Patient - History of Present Illness Narrative History of Present Illness (Text): 02/23/18 21:53 Felix Wilson is a 42 year old male smoker, whose past medical history includes asthma, hypertension, hyperlipidemia, and anxiety, who presents to the Emergency department complaining of chest tightness. Patient states has been experiencing upper back/neck pain for the past 3 days and developed chest tightness with associated dyspnea and paresthesias to bilateral arms and legs. Patient reports a family history of CAD and diabetes. Patient notes he was admitted to the hospital for similar symptoms in the past and came in for further evaluation. Patient states he took nebulizer treatments and Advil PM at home tonight. Patient denies any fever, chills, nausea, vomiting, diarrhea, urinary symptoms, headache, dizziness, or any other complaints. Patient also complaining of pain to right upper molar when drinking/eating hot and cold foods. PMD: Dr. Sarai Price Time/Duration: < week (few days) Symptom Onset: Gradual Symptom Course: Unchanged Activities at Onset: Light Context: Home Past Medical History - Provider Review Nursing Documentation Reviewed: Yes - Infectious Disease Hx of Infectious Diseases: None - Cardiac Hx Hypertension: Yes - Pulmonary Hx Asthma: Yes Hx Respiratory Aspiration: Yes - Renal Other/Comment: One kidney - Musculoskeletal/Rheumatological Hx Falls: No - Gastrointestinal Hx Gastroesophageal Reflux: Yes - Psychiatric Hx Anxiety: Yes Hx Substance Use: No Family/Social History - Physician Review Nursing Documentation Reviewed: Yes Family/Social History: Unknown Family HX Smoking Status: Heavy Smoker > 10 Cigarettes Daily Hx Alcohol Use: Yes Hx Substance Use: No Allergies/Home Meds Allergies/Adverse Reactions: Allergies seasonal Allergy (Uncoded 03/07/17 14:24) CONGESTION Home Medications: Home Meds Medication Instructions Recorded Confirmed Cetirizine HCl [Allergy Relief] 10 mg PO DAILY 02/23/17 02/23/18 Lisinopril [Zestril] 10 mg PO DAILY 02/23/17 02/23/18 Montelukast [Singulair] 10 mg PO DAILY 02/23/17 02/23/18 Review of Systems - Physician Review All systems were reviewed & negative as marked: Yes - Review of Systems Constitutional: Normal. absent: Fevers Eyes: Normal ENT: Normal Respiratory: SOB Cardiovascular: Chest Pain Gastrointestinal: Normal. absent: Abdominal Pain, Diarrhea, Nausea, Vomiting Genitourinary Male: Normal. absent: Dysuria, Frequency, Hematuria, Urinary Output Changes Musculoskeletal: Back Pain, Neck Pain Skin: Normal. absent: Rash Neurological: Other (+paresthesias) Endocrine: Normal Hemo/Lymphatic: Normal Psychiatric: Normal Physical Exam Vital Signs Reviewed: Yes Vital Signs Temp Pulse Resp BP Pulse Ox 02/23/18 21:23 98.2 F 80 18 152/89 H 100 Temperature: Afebrile Blood Pressure: Normal Pulse: Regular Respiratory Rate: Normal Appearance: Positive for: Well-Appearing, Non-Toxic, Comfortable Pain Distress: None Mental Status: Positive for: Alert and Oriented X 3 - Systems Exam Head: Present: Atraumatic, Normocephalic Pupils: Present: PERRL Extroacular Muscles: Present: EOMI Conjunctiva: Present: Normal Ears: Present: Normal, NORMAL TM, Normal Canal. No: Erythema, TM Bulging, Fluid , TM Perf Mouth: Present: Moist Mucous Membranes, Normal Lips, Normal Tounge, Normal Teeth Pharnyx: Present: Normal. No: ERYTHEMA, EXUDATE, TONSILS ENLARGED, Peritonsilar Swelling, Uvular Deviation, Muffled/Hoarse Voice, Strider, Soft Palate/Uvular Edema Nose (External): Present: Atraumatic Nose (Internal): Present: Normal Inspection Neck: Present: Normal Range of Motion. No: Meningeal Signs, MIDLINE TENDERNESS , Paraspinal Tenderness Respiratory/Chest: Present: Wheezes (Slight end-expiratory wheeze in right lung field). No: Respiratory Distress, Accessory Muscle Use Cardiovascular: Present: Regular Rate and Rhythm, Normal S1, S2. No: Murmurs Abdomen: No: Tenderness, Distention, Peritoneal Signs Back: Present: Normal Inspection. No: CVA Tenderness, Midline Tenderness, Paraspinal Tenderness Upper Extremity: Present: Normal Inspection, Normal ROM, NORMAL PULSES, Neurovascularly Intact, Capillary Refill < 2s. No: Cyanosis, Edema, Tenderness , Swelling, Erythema, Temperature Abnormalties, Deformity Lower Extremity: Present: Normal Inspection, NORMAL PULSES, Normal ROM, Neurovascularly Intact, Capillary Refill < 2 s. No: Edema, Cyanosis, Tenderness , Swelling, Erythema, Deformity, Temperature Abnormalties Neurological: Present: GCS=15, CN II-XII Intact, Speech Normal, Motor Func Grossly Intact, Normal Sensory Function, Normal Cerebellar Funct, Gait Normal, Memory Normal Skin: Present: Warm, Dry, Normal Color. No: Rashes Psychiatric: Present: Alert, Oriented x 3, Normal Insight, Normal Concentration Medical Decision Making ED Course and Treatment: 02/23/18 21:53 Impression: 42 year old male complaining of chest tightness, dyspnea, paresthesias to bilateral arms/legs tonight, upper back/neck pain x3 days. Plan: -- EKG -- CXR -- Labs, cardiac enzymes, D-dimer -- Aspirin -- Reassess and disposition Prior Visits: Notes and results from previous visits were reviewed. On 05/19/2017, pt was seen in the Emergency department for shortness of breath, chest tightness, dizziness, and nausea. Pt was d/c home. Progress Notes: Reviewed EKG, NSR at 80 bpm. Incomplete RBBB. Non-specific ST/T wave changes. 02/23/18 22:18 CXR reviewed, shows no acute processes. 02/23/18 23:18 Case discussed with bacteriologist medical vocational rehabilitation teacher, who is aware and agrees with plan. 02/23/18 23:[address] Edgardo Stout, who is aware and agrees with plan. Accepts pt in hospitalist service. Pt will go to telemetry observation for chest pain. Pt agreeable with plan. - Lab Interpretations Lab Results: 02/23/18 22:15 02/23/18 22:15 Lab Results 02/23/18 22:15: WBC 7.4 D, RBC 4.22, Hgb 13.1 L, Hct 37.2 L, MCV 88.2, MCH 31.0 , MCHC 35.2, RDW 12.7, Plt Count 244, MPV 9.9 02/23/18 22:15: PT 12.6 H, INR 1.10 H, APTT 31.0, D-Dimer, Quantitative Pending 02/23/18 22:15: Sodium 139, Potassium 3.6, Chloride 103, Carbon Dioxide 25, Anion Gap 15, BUN 21, Creatinine 1.0, Est GFR ( Amer) > 60, Est GFR (Non- Af Amer) > 60, Random Glucose 108, Calcium 8.8, Total Bilirubin 0.4, AST 56, ALT 46, Alkaline Phosphatase 89, Lactate Dehydrogenase 522, Total Creatine Kinase 89, Troponin I < 0.01, Total Protein 6.9, Albumin 4.1, Globulin 2.9, Albumin/Globulin Ratio 1.4 I have reviewed the lab results: Yes - RAD Interpretation Radiology Orders: 02/23/18 21:55 CHEST PORTABLE [RAD] Stat Manager Supply: ED Physician - EKG Interpretation Interpreted by ED Physician: Yes Type: 12 lead EKG - Medication Orders Current Medication Orders: Albuterol/Ipratropium (Duoneb 3 Mg/0.5 Mg (3 Ml) Ud) 3 ml IH ONCE STA Stop: 02/23/18 23:38 Enoxaparin Sodium (Lovenox) 40 mg SC DAILY ROBERT PRN Reason: Protocol Lisinopril (Zestril) 10 mg PO DAILY ROBERT Montelukast Sodium (Singulair) 10 mg PO DAILY ROBERT Morphine Sulfate (Morphine) 4 mg IVP STAT STA Stop: 02/23/18 23:35 Pantoprazole Sodium (Protonix Ec Tab) 40 mg PO 0600 ROBERT Discontinued Medications Aspirin (Aspirin) 325 mg PO ONCE STA Stop: 02/23/18 21:58 Last Admin: 02/23/18 22:06 Dose: 325 mg - Scribe Statement The provider has reviewed the documentation as recorded by the Chaimibmario Ramirez All medical record entries made by the Chaimibmario were at my direction and personally dictated by me. I have reviewed the chart and agree that the record accurately reflects my personal performance of the history, physical exam, medical decision making, and the department course for this patient. I have also personally directed, reviewed, and agree with the discharge instructions and disposition. Disposition/Present on Arrival - Present on Arrival Any Indicators Present on Arrival: No History of DVT/PE: No History of Uncontrolled Diabetes: No Urinary Catheter: No History of Decub. Ulcer: No History Surgical Site Infection Following: None - Disposition Have Diagnosis and Disposition been Completed?: Yes Diagnosis: Chest pain Disposition: HOSPITALIZED Disposition Time: 23:37 Patient Plan: Observation Patient Problems: Current Active Problems Problem Status Onset Chest pain Acute Condition: STABLE Discharge Instructions (ExitCare): Chest Pain (ED) Referrals: Flaca Price DO [Primary Care Provider] - Follow up with primary Forms: [email or web address] (Polish)
[2018-02-23 22:43] LABS: ALB/GLOB RATIO 1.4 (1.1-1.8); ALBUMIN 4.1 g/dL (3.0-4.8); CALCIUM 8.8 mg/dL (8.4-10.5); GFR AFRICAN-AMERICAN > 60; GFR NON-AFRICAN AMERICAN > 60
[2018-02-23 22:45] LABS: INR 1.1 (0.93-1.08); PROTHROMBIN TIME 12.6 SECONDS (9.4-12.5)
[2018-02-23 22:46] LABS: ALT/SGPT 46 U/L (7-56); AST/SGOT 56 U/L (17-59); BLOOD UREA NITROGEN 21 mg/dL (7-21)
[2018-02-23 22:54] LABS: TROPONIN I < 0.01 ng/mL
[2018-02-23 22:59] LABS: HEMOGLOBIN 13.1 g/dL (14.0-18.0); MEAN CELL VOLUME 88.2 fl (80.0-105.0); MEAN CORPUSCULAR HGB CONC 35.2 g/dl (31.0-37.0); MEAN PLATELET VOLUME 9.9 fl (7.0-11.0); RBC 4.22 10^6/uL (3.5-6.1); RED CELL DISTRIBUTION WIDTH 12.7 % (11.5-14.5); WHITE BLOOD COUNT 7.4 10^3/ul (4.5-11.0)
[2018-02-23 23:16] VITALS: RESP 18; TEMP 98.2; O2SAT 100
--- NOTE | 2018-02-23 23:26 | CP.PCM.HP ---
History of Present Illness - History of Present Illness History of Present Illness: Patient is a 42 year old male with a PMHx of Asthma, HTN, HLD, renal vein thrombosis (as ) and anxiety who presents with complaints of upper back/ neck pain and chest tightness w/o radiation. Patient stated he has been experiencing upper back/neck pain for several weeks that worsened overnight. He then started experiencing SOB and chest tightness. Patient then used Xopenex nebulizer for his symptoms. He is unsure if it worked or not and states that he may have been experiencing a panic attack. He began to feel palpitations after his Xopenex treatment. Associated with his symptoms is generalized weakness. He stated he felt similar to how he did when he had lyme disease. Patient denies any fever, chills, headache, vision changes, abdominal pain, nausea, vomiting, changes in bowel habits, or urinary symptoms. ROS: As stated above PMHx: as stated above PSHx: Kidney removal, endoscopy Allergies: Seasonal SocialHx: Admits to tobacco, admits to occasional alcohol. Denies illicit drug use FamHx: CAD, Diabetes Meds: Reviewed Present on Admission - Present on Admission Any Indicators Present on Admission: No Past Patient History - Infectious Disease Hx of Infectious Diseases: None - Past Social History Smoking Status: Heavy Smoker > 10 Cigarettes Daily - CARDIAC Hx Hypertension: Yes - PULMONARY Hx Asthma: Yes Hx Respiratory Aspiration: Yes - RENAL Other/Comment: One kidney - MUSCULOSKELETAL/RHEUMATOLOGICAL Hx Falls: No - GASTROINTESTINAL Hx Gastroesophageal Reflux: Yes - PSYCHIATRIC Hx Anxiety: Yes Hx Substance Use: No - SURGICAL HISTORY Hx Surgeries: No Meds Allergies/Adverse Reactions: Allergies Allergy/AdvReac Type Severity Reaction Status Date / Time seasonal Allergy CONGESTION Uncoded 03/07/17 14:24 Physical Exam - Constitutional Appears: Well, Non-toxic, No Acute Distress - Head Exam Head Exam: ATRAUMATIC, NORMAL INSPECTION, NORMOCEPHALIC - Eye Exam Eye Exam: EOMI, Normal appearance, PERRL. absent: Scleral icterus - ENT Exam ENT Exam: Mucous Membranes Moist - Neck Exam Neck exam: Positive for: Normal Inspection. Negative for: Thyromegaly Additional comments: No Carotid Bruit - Respiratory Exam Respiratory Exam: Wheezes (Diffuse), NORMAL BREATHING PATTERN. absent: Accessory Muscle Use, Clear to Auscultation Bilateral, Rales, Rhonchi, Respiratory Distress, Stridor - Cardiovascular Exam Cardiovascular Exam: RRR, +S1, +S2. absent: JVD - GI/Abdominal Exam GI & Abdominal Exam: Normal Bowel Sounds, Soft. absent: Tenderness - Extremities Exam Extremities exam: Positive for: normal capillary refill, normal inspection. Negative for: pedal edema - Back Exam Back exam: paraspinal tenderness (Right Sided T1-T6 w/ Hypertonicity ). absent : CVA tenderness (L), CVA tenderness (R) - Neurological Exam Neurological exam: Alert, CN II-XII Intact, Normal Gait, Oriented x3 Additional comments: 5/5 Muscle strength in Upper and Lower Extremities No sensory loss - Psychiatric Exam Psychiatric exam: Normal Affect, Normal Mood - Skin Skin Exam: Dry, Intact, Normal Color, Warm Results - Vital Signs Recent Vital Signs: Last Vital Signs Temp 98.2 F 02/23/18 21:23 Pulse 80 02/23/18 21:23 Resp 18 02/23/18 21:23 BP 152/89 H 02/23/18 21:23 Pulse Ox 100 02/23/18 21:23 - Labs Result Diagrams: 02/23/18 22:15 02/23/18 22:15 Labs: Laboratory Results - last 24 hr 02/23/18 02/23/18 02/23/18 22:15 22:15 22:15 WBC 7.4 D RBC 4.22 Hgb 13.1 L Hct 37.2 L MCV 88.2 MCH 31.0 MCHC 35.2 RDW 12.7 Plt Count 244 MPV 9.9 PT 12.6 H INR 1.10 H APTT 31.0 Sodium 139 Potassium 3.6 Chloride 103 Carbon Dioxide 25 Anion Gap 15 BUN 21 Creatinine 1.0 Est GFR ( Amer) > 60 Est GFR (Non-Af Amer) > 60 Random Glucose 108 Calcium 8.8 Total Bilirubin 0.4 AST 56 ALT 46 Alkaline Phosphatase 89 Lactate Dehydrogenase 522 Total Creatine Kinase 89 Troponin I < 0.01 Total Protein 6.9 Albumin 4.1 Globulin 2.9 Albumin/Globulin Ratio 1.4 Assessment & Plan - Assessment and Plan (Free Text) Assessment: 42 year old male with a PMHx of Asthma, HTN, HLD, renal vein thrombosis (as infant) and anxiety who presents with complaints of upper back/neck pain and chest tightness w/o radiation. Plan: Patients symptoms completely resolved. He decided to leave AMA from the emergency department. Benefits of staying including evaluation from masonry inspector and further testing were explained to him. Risk of leaving including possibility of CA, angina, permanent disability and were explained to patient. Patient told to take an aspirin and return to E.R if symptoms return.
[2018-02-23] MEDS ORDERED: Morphine 4 mg/ml ISec IVP STA (23:34)
[2018-02-23] MEDS ORDERED: Albuterol-Ipratrop 3 mg / 0.5 (3 ml) UD IH STA (23:37)
[2018-02-23] MEDS ORDERED: Morphine 4 mg/ml ISec ONE (23:44)
[2018-02-24 00:26] VITALS: BP 139/98; PULSE 82
[2018-02-24] MEDS ORDERED: Pantoprazole 40 mg EC Tab PO SCH (06:00)
--- NOTE | 2018-02-24 07:35 | RAD ---
HISTORY: chest pain COMPARISON: Portable chest 05/19/2017. FINDINGS: LUNGS: Diminished inspiratory volume. No acute infiltrate bilaterally. PLEURA: No significant pleural effusion identified, no pneumothorax apparent. CARDIOVASCULAR: Normal. OSSEOUS STRUCTURES: No significant abnormalities. VISUALIZED UPPER ABDOMEN: Normal. OTHER FINDINGS: None. IMPRESSION: Diminished inspiratory volume. No acute infiltrate, pleural effusion or pneumothorax bilaterally. Unremarkable cardiovascular pattern.
[2018-02-24] MEDS ORDERED: Enoxaparin 40 mg Syringe SC SCH (10:00)
--- NOTE | 2018-02-24 22:50 | CARD ---
APPROVED REPORT EKG Measurement Heart [id number] <Conclusion> Poor data quality, interpretation may be adversely affected Normal sinus rhythm Incomplete right bundle branch block Borderline ECG
== END 2018-02-24 00:15 | disposition left against medical advice (07) ==
LOC: ED 21:23 → UNDOADMOB 23:35 → ERH 23:35
DX: R07.9 Chest pain, unspecified (principal); E78.5 Hyperlipidemia, unspecified; I10 Essential (primary) hypertension; F17.210 Nicotine dependence, cigarettes, uncomplicated
CPT/HCPCS: 71045; 80053; 82550; 83615; 84484; 85027; 85378; 85610; 85730; 93005; 96374; 99284; J2270

== ENCOUNTER 2018-05-28 10:31 | Emergency (ER) | payer MEDICAID ==
[2018-05-28 10:32] VITALS: BMI 27.4
[2018-05-28 11:05] VITALS: BP 148/101; PULSE 78; O2SAT 97
--- NOTE | 2018-05-28 11:30 | ED PDOC ---
Arrival/HPI - General Chief Complaint: Eye Problem Time Seen by Provider: 05/28/18 11:16 Historian: Patient - History of Present Illness Time/Duration: Other (This morning) Symptom Onset: Gradual Symptom Course: Unchanged Severity Level: Moderate Activities at Onset: Sleeping Associated Symptoms (Text): 05/28/18 11:27 Patient woke up this morning with left eye irritation. He states that he went to bed last night feeling fine. No visual disturbance. No headache. He has a foreign body sensation. No discharge. No redness. No fever or chills. He does where glasses. 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 Past Medical History - Infectious Disease Hx of Infectious Diseases: None - Cardiac Hx Cardiac Disorders: Yes Hx Hypertension: Yes - Pulmonary Hx Respiratory Disorders: Yes Hx Asthma: Yes - Neurological Hx Neurological Disorder: No - HEENT Hx HEENT Disorder: No - Renal Hx Renal Disorder: Yes Other/Comment: One kidney - Endocrine/Metabolic Hx Endocrine Disorders: No - Hematological/Oncological Hx Blood Disorders: No - Integumentary Hx Dermatological Disorder: No - Musculoskeletal/Rheumatological Hx Musculoskeletal Disorders: Yes Hx Fractures: Yes - Gastrointestinal Hx Gastrointestinal Disorders: Yes Hx Gastroesophageal Reflux: Yes - Genitourinary/Gynecological Hx Genitourinary Disorders: No - Psychiatric Hx Psychophysiologic Disorder: Yes Hx Anxiety: Yes Hx Substance Use: No - Surgical History Other/Comment: NASAL Family/Social History - Physician Review Nursing Documentation Reviewed: Yes Family/Social History: Unknown Family HX Smoking Status: Heavy Smoker > 10 Cigarettes Daily Hx Alcohol Use: Yes Frequency of alcohol use: Socially Hx Substance Use: No Allergies/Home Meds Allergies/Adverse Reactions: Allergies seasonal Allergy (Uncoded 05/28/18 11:00) CONGESTION Home Medications: Home Meds Medication Instructions Recorded Confirmed Lisinopril [Zestril] 10 mg PO DAILY 02/23/17 05/28/18 Montelukast [Singulair] 10 mg PO DAILY 02/23/17 05/28/18 Review of Systems - Physician Review All systems were reviewed & negative as marked: Yes Physical Exam Vital Signs Temp Pulse Resp BP Pulse Ox 05/28/18 11:24 98.6 F 78 18 148/101 H 97 05/28/18 11:01 98.6 F 78 17 148/101 H 97 Temperature: Afebrile Blood Pressure: Hypertensive Pulse: Regular Respiratory Rate: Normal Appearance: Positive for: Well-Appearing, Non-Toxic, Comfortable Pain Distress: None Mental Status: Positive for: Alert and Oriented X 3 - Systems Exam Head: Present: Atraumatic, Normocephalic Pupils: Present: PERRL Extroacular Muscles: Present: EOMI Conjunctiva: Present: Normal, Other (Fluoresceins staining is negative. No foreign body is visualized. There is a sty on the left upper inner eyelid.) Disposition/Present on Arrival - Present on Arrival Any Indicators Present on Arrival: No History of DVT/PE: No History of Uncontrolled Diabetes: No Urinary Catheter: No History of Decub. Ulcer: No History Surgical Site Infection Following: None - Disposition Have Diagnosis and Disposition been Completed?: Yes Diagnosis: Sty Disposition: HOME/ ROUTINE Disposition Time: 11:28 Patient Plan: Discharge Condition: GOOD Discharge Instructions (ExitCare): Johann (Hordeolum) Additional Instructions: Moist heat. Follow-up with PMD for hypertension check. Follow-up with trimming press operator. Prescriptions: Amoxicillin/Clavulanate [Augmentin 875 MG-125 MG] 1 tab PO Q12 #20 tab Forms: [employer] (Portuguese), WORK NOTE
[2018-05-28 11:44] VITALS: RESP 18
[2018-05-28 11:57] VITALS: TEMP 98
== END 2018-05-28 11:55 | disposition home or self-care (01) ==
LOC: ED 10:31
DX: H00.024 Hordeolum internum left upper eyelid (principal); I10 Essential (primary) hypertension; F17.210 Nicotine dependence, cigarettes, uncomplicated

== ENCOUNTER 2019-02-13 11:10 | Emergency (ER) | payer MEDICAID ==
[2019-02-13 11:43] VITALS: RESP 18; TEMP 97.9; O2SAT 97
[2019-02-13 11:44] VITALS: BMI 28.1
[2019-02-13] MEDS ORDERED: Morphine 4 mg/ml ISec IVP STA (12:03)
[2019-02-13] MEDS ORDERED: Sodium Chloride 0.9% 1,000 ML IV STA (12:04)
--- NOTE | 2019-02-13 12:42 | ED PDOC ---
Arrival/HPI - General Chief Complaint: Back Pain Historian: Patient - History of Present Illness Narrative History of Present Illness (Text): 02/13/19 12:38 43 year old M with pmh of right kidney atrophy, hypertension, hyperlipidemia, and anxiety presents with chief complaint of aching lower back pain since last night. Patient also reports of intermittent nausea since last night. Patient mentioned taking tylenol which failed to relieve any pain. Patient denies any fevers, chills, headache, dizziness, chest pain, shortness of breath, dyspnea on exertion, cough, abdominal pain, nausea, vomiting, diarrhea, neck pain, or any other complaint. Time/Duration: 24 hours Symptom Onset: Sudden Symptom Course: Unchanged Activities at Onset: Light Context: Home Past Medical History - Provider Review Nursing Documentation Reviewed: Yes - Infectious Disease Hx of Infectious Diseases: None - Cardiac Hx Cardiac Disorders: Yes Hx Hypertension: Yes - Pulmonary Hx Respiratory Disorders: Yes Hx Asthma: Yes - Neurological Hx Neurological Disorder: No - HEENT Hx HEENT Disorder: No - Renal Hx Renal Disorder: Yes Other/Comment: One kidney - Endocrine/Metabolic Hx Endocrine Disorders: No - Hematological/Oncological Hx Blood Disorders: No - Integumentary Hx Dermatological Disorder: No - Musculoskeletal/Rheumatological Hx Musculoskeletal Disorders: Yes Hx Fractures: Yes - Gastrointestinal Hx Gastrointestinal Disorders: Yes Hx Gastroesophageal Reflux: Yes - Genitourinary/Gynecological Hx Genitourinary Disorders: No - Psychiatric Hx Psychophysiologic Disorder: Yes Hx Anxiety: Yes Hx Substance Use: No - Surgical History Other/Comment: NASAL - Anesthesia Hx Anesthesia: No Hx Anesthesia Reactions: No Hx Malignant Hyperthermia: No Family/Social History - Physician Review Nursing Documentation Reviewed: Yes Family/Social History: Unknown Family HX Smoking Status: Heavy Smoker > 10 Cigarettes Daily Hx Alcohol Use: Yes Hx Substance Use: No Allergies/Home Meds Allergies/Adverse Reactions: Allergies seasonal Allergy (Uncoded 05/28/18 11:00) CONGESTION Home Medications: Home Meds Medication Instructions Recorded Confirmed ALPRAZolam [Xanax] 1 mg PO DAILY 02/13/19 02/13/19 Atorvastatin [Lipitor] 10 mg PO DAILY 02/13/19 02/13/19 Lisinopril [Zestril] 10 mg PO DAILY 02/13/19 02/13/19 Metoprolol Succinate [Kapspargo 50 mg PO DAILY 02/13/19 02/13/19 Sprinkle] Montelukast [Singulair] 10 mg PO DAILY 02/13/19 02/13/19 Nicotine Gum [Nicorette Gum] 2 mg PO DAILY 02/13/19 02/13/19 Pantoprazole Sodium [Protonix] 40 mg PO DAILY 02/13/19 02/13/19 cloNIDine [Catapres (RENAL)] 0.1 mg PO DAILY 02/13/19 02/13/19 hydroCHLOROthiazide [Hydrodiuril] 25 mg PO DAILY 02/13/19 02/13/19 Review of Systems - Physician Review All systems were reviewed & negative as marked: Yes - Review of Systems Constitutional: absent: Fevers ENT: absent: Sore Throat, Rhinorrhea Respiratory: absent: SOB, Cough Cardiovascular: absent: Chest Pain Gastrointestinal: Nausea (intermitent). absent: Abdominal Pain, Diarrhea, Vomiting Genitourinary Male: absent: Dysuria Musculoskeletal: Back Pain. absent: Arthralgias, Myalgias Skin: absent: Rash, Cellulitis Neurological: absent: Headache, Dizziness, Speech Changes Physical Exam Vital Signs Reviewed: Yes Vital Signs Temp Pulse Resp BP Pulse Ox 02/13/19 11:11 97.9 F 66 18 141/94 H 97 Temperature: Afebrile Blood Pressure: Hypertensive Pulse: Regular Respiratory Rate: Normal Appearance: Positive for: Well-Appearing, Non-Toxic, Comfortable Pain Distress: Mild Mental Status: Positive for: Alert and Oriented X 3 - Systems Exam Head: Present: Atraumatic, Normocephalic Pupils: Present: PERRL Extroacular Muscles: Present: EOMI Conjunctiva: Present: Normal Mouth: Present: Moist Mucous Membranes Neck: Present: Normal Range of Motion Respiratory/Chest: Present: Clear to Auscultation, Good Air Exchange. No: Respiratory Distress, Accessory Muscle Use Cardiovascular: Present: Regular Rate and Rhythm, Normal S1, S2. No: Murmurs Abdomen: No: Tenderness, Distention, Peritoneal Signs Back: Present: CVA Tenderness (left). No: Midline Tenderness, Paraspinal Tenderness Upper Extremity: Present: Normal Inspection. No: Cyanosis, Edema Lower Extremity: Present: Normal Inspection. No: Edema Neurological: Present: GCS=15, CN II-XII Intact, Speech Normal Skin: Present: Warm, Dry, Normal Color. No: Rashes Psychiatric: Present: Alert, Oriented x 3, Normal Insight, Normal Concentration Medical Decision Making ED Course and Treatment: 02/13/19 12:42 Impression: 43 year old M presents with chief complaint of aching lower back pain since last night Plan: -- Labs -- Abd & Pelvis w/o PO -- Morphine -- Urinalysis -- Reassess and disposition Prior Visits: Notes and results from previous visits were reviewed. Patient was last seen in the emergency department on Progress Notes: - RAD Interpretation Narrative RAD Interpretations (Text): 02/13/19 14:42 Abdomen/ Pelvis CT There is severe atrophy of the right kidney. There is a large left kidney. There is a mild amount of perinephriic stranding on the left. It is uncertain whether this is acute or chronic. This could be secondary to pyelonephtiis. Clinical correlation is suggested. There is no evidence of hydronephrosis. Radiology Orders: 02/13/19 12:03 ABD & PELVIS W/O PO OR IV CONT [CT] Stat Learning Analyst: Radiologist - Medication Orders Current Medication Orders: Sodium Chloride (Sodium Chloride 0.9%) 1,000 mls @ 999 mls/hr IV .Q1H1M STA Stop: 02/13/19 13:04 Discontinued Medications Morphine Sulfate (Morphine) 4 mg IVP STAT STA Stop: 02/13/19 12:04 - Scribe Statement The provider has reviewed the documentation as recorded by the Tamara Berman All medical record entries made by the Scribe were at my direction and personally dictated by me. I have reviewed the chart and agree that the record accurately reflects my personal performance of the history, physical exam, medical decision making, and the department course for this patient. I have also personally directed, reviewed, and agree with the discharge instructions and disposition. Disposition/Present on Arrival - Present on Arrival Any Indicators Present on Arrival: No History of DVT/PE: No History of Uncontrolled Diabetes: No Urinary Catheter: No History of Decub. Ulcer: No History Surgical Site Infection Following: None - Disposition Have Diagnosis and Disposition been Completed?: Yes Diagnosis: Pyelonephritis Disposition Time: 14:23 Patient Plan: Discharge Patient Problems: Current Active Problems Problem Status Onset Pyelonephritis Acute Condition: STABLE Discharge Instructions (ExitCare): Kidney Infection (DC) Print Language: [place] Additional Instructions: All medical record entries made by the Scribe were at my direction and personally dictated by me. I have reviewed the chart and agree that the record accurately reflects my personal performance of the history, physical exam, medical decision making, and the department course for this patient. I have also personally directed, reviewed, and agree with the discharge instructions and disposition. Please take medication as prescribed If you can, please schedule an appointment with the renal physician listed in your discharge instructions Prescriptions: Ciprofloxacin [Cipro] 500 mg PO BID 10 Days #20 tab oxyCODONE/Acetaminophen [Percocet 5/325 mg Tab] 1 ea PO PRN PRN #6 tab PRN Reason: Pain, Severe (8-10) Referrals: Flaca Price DO [Primary Care Provider] - Follow up with primary Roque Winters MD [Staff Provider] - Follow up with primary Guadalupe Vera MD [Staff Provider] - Follow up with primary Forms: [facility] ([place]), WORK NOTE
[2019-02-13 13:03] LABS: URINE BILIRUBIN NEGATIVE (NEGATIVE); URINE BLOOD TRACE-LYSED (NEGATIVE); URINE GLUCOSE (UA) NEGATIVE (NEGATIVE); URINE LEUKOCYTE ESTERASE NEGATIVE Leu/uL (NEGATIVE); URINE PROTEIN TRACE mg/dL (<30 mg/dL); URINE UROBILINOGEN 0.2 E.U./dL (<1 E.U./dL)
[2019-02-13 13:09] LABS: URINE APPEARANCE SL CLOUDY (CLEAR); URINE COLOR YELLOW (YELLOW)
[2019-02-13 13:10] LABS: URINE EPITHELIAL CELLS 0 - 2 /hpf (0-5); URINE RBC 0 - 2 /hpf (0-2); URINE WBC 0 - 2 /hpf (0-6)
[2019-02-13] MEDS ORDERED: Morphine 2 mg/ml ISec IVP STA ×2 (13:10→13:43)
[2019-02-13 13:42] LABS: BASO # 0.01 K/mm3 (0.0-2.0); BASO % 0.1 % (0.0-3.0); EOS # 0.2 (0.0-0.7); LYMPH # 2.1 (1.2-3.4); LYMPH % 21.7 % (22.0-35.0); MEAN CELL VOLUME 88.2 fl (80.0-105.0); MEAN CORPUSCULAR HEMOGLOBIN 30.2 pg (25.0-35.0); MEAN CORPUSCULAR HGB CONC 34.3 g/dl (31.0-37.0); MEAN PLATELET VOLUME 9.4 fl (7.0-11.0); MONO % 10.2 % (1.0-6.0); RBC 3.97 10^6/uL (3.5-6.1); RED CELL DISTRIBUTION WIDTH 12.5 % (11.5-14.5); WHITE BLOOD COUNT 9.5 10^3/uL (4.5-11.0)
[2019-02-13 13:45] LABS: ALB/GLOB RATIO 1.5 (1.1-1.8); ALBUMIN 4.1 g/dL (3.0-4.8); CALCIUM 8.5 mg/dL (8.4-10.5)
--- NOTE | 2019-02-13 14:09 | CT ---
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 TECHNIQUE: Without contrast.. Contrast dose: Radiation dose: Total exam DLP = 759.79 mGy-cm. This CT exam was performed using one or more of the following dose reduction techniques: Automated exposure control, adjustment of the mA and/or kV according to patient size, and/or use of iterative reconstruction technique. FINDINGS: LOWER THORAX: Unremarkable. LIVER: Unremarkable. No gross lesion or ductal dilatation. GALLBLADDER AND BILE DUCTS: Unremarkable. PANCREAS: Unremarkable. No gross lesion or ductal dilatation. SPLEEN: Unremarkable. ADRENALS: Unremarkable. No mass. KIDNEYS AND URETERS: There is severe atrophy of the right kidney. There is a large left kidney. There is a mild amount of perinephric stranding on the left. It is uncertain whether this is acute or chronic. This could be secondary to pyelonephritis. Clinical correlation is suggested. There is no evidence of hydronephrosis. VASCULATURE: Unremarkable. No aortic aneurysm. Aortic calcification BOWEL: Unremarkable. No obstruction. No gross mural thickening. APPENDIX: Unremarkable. Normal appendix. PERITONEUM: Unremarkable. No free fluid. No free air. LYMPH NODES: Unremarkable. No enlarged lymph nodes. BLADDER: Unremarkable. REPRODUCTIVE: Unremarkable. BONES: No acute fracture. OTHER FINDINGS: None. IMPRESSION: There is severe atrophy of the right kidney. There is a large left kidney. There is a mild amount of perinephric stranding on the left. It is uncertain whether this is acute or chronic. This could be secondary to pyelonephritis. Clinical correlation is suggested. There is no evidence of hydronephrosis.
[2019-02-13 14:41] VITALS: BP 115/79; PULSE 69
== END 2019-02-13 15:29 | disposition home or self-care (01) ==
LOC: ED 11:10
DX: N12 Tubulo-interstitial nephritis, not specified as acute or chronic (principal); E78.5 Hyperlipidemia, unspecified; I10 Essential (primary) hypertension; F17.210 Nicotine dependence, cigarettes, uncomplicated
CPT/HCPCS: 74176; 80053; 81001; 85025; 96374; 96375; 99283; J2270; J2405; J7030